=== PATIENT | female | born 2005 | race Caucasian/White ===

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

== ENCOUNTER 2023-01-08 15:35 | Emergency (ER) | payer OTHER, SELFPAY ==
--- NOTE | 2023-01-08 15:44 | EXP.UTC ---
Discharge Plan Disposition Patient Disposition: Home, Self-Care Condition: Good Prescriptions Prescriptions: New phenazopyridine [Pyridium] 200 mg tablet 200 mg PO Q8H 2 Days Qty: 6 0RF sulfamethoxazole-trimethoprim [Bactrim DS] 800-160 mg Tablet 1 tab PO BID Qty: 14 0RF ondansetron 4 mg Tablet,Disintegrating 4 mg PO Q8H PRN (Reason: Nausea) Qty: 12 0RF No Action polyethylene glycol 3350 [Miralax] 17 gram/dose powder 17 g PO DAILY PRN Referrals Follow up/Referrals: Joana Ayoub [Primary Care Provider] - See instructions Activity Restrictions/Add. Instructions Additional Instructions/Restrictions: Drink plenty of fluids. Take tylenol or ibuprofen for pain or fever. Take the medications as directed. Follow up with your regular doctor. GO TO THE ER FOR ANY WORSENING SYMPTOMS The pyridium will make your urine turn orange, this is an expected side effect. It will stain your clothes if it comes into contact with them. We will culture the urine. That will tell what bacteria is causing your infection and which antibiotics will treat it best. Sometimes the first antibiotic we prescribe turns out to not work against different bacteria. So, make sure you follow up within 3 days if you are not getting better. Clinical Impressions Clinical Impression: UTI (urinary tract infection) Stand Alone Forms Stand Alone Forms: Work/School Release Instructions Patient Instructions: Urinary Tract Infection, Urine Culture, DI for Urinary Tract Infection (UTI), Phenazopyridine Discharge ED Provider: Jamaal Flores [facility] General Stated complaint: frequent burning urination Time Seen by Provider: 01/08/23 15:44 History of Present Illness Provider Complaint: She states that for the past 2 days she has had dysuria and urinary frequency. Related Data Home Medications Medication Instructions Recorded Confirmed polyethylene glycol 3350 17 17 g PO DAILY PRN 09/13/22 09/13/22 gram/dose oral powder (Miralax) Previous Rx's Medication Instructions Recorded ondansetron 4 mg disintegrating 4 mg PO Q8H PRN Nausea #12 tabs 01/08/23 tablet phenazopyridine 200 mg tablet 200 mg PO Q8H 2 days #6 tabs 01/08/23 (Pyridium) sulfamethoxazole 800 1 tab PO BID #14 tabs 01/08/23 mg-trimethoprim 160 mg tablet (Bactrim DS) Allergies Allergy/AdvReac Type Severity Reaction Status Date / Time No Known Allergies Allergy Verified 09/13/22 14:08 [facility] Disclaimer: The information contained in this section may have been updated after the patient was seen, as this information can be updated by other users. 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 occupational status: employed and student Travel in the last 8 weeks: None household members: family housing: house ROS Obtained: Yes All systems reviewed & no additional complaints except as documented Constitutional Constitutional: Reports system reviewed and no additional complaints, except as documented, Denies chills and Denies fever(s) Eyes Eyes: Denies eye discharge ENT Ears, Nose, Mouth, and Throat: Denies dysphagia, Denies sore throat and Denies throat swelling Cardiovascular Cardiovascular: Denies chest pain and Denies dyspnea Respiratory Respiratory: Denies chest congestion, Denies cough and Denies dyspnea Gastrointestinal Gastrointestingal: Denies abdominal pain, constipation, diarrhea, dysphagia, nausea or vomiting Genitourinary Female Genitourinary: Reports as per HPI, Reports dysuria, Reports urinary frequency, Denies urinary incontinence, Reports urinary hesitancy and Reports urinary urgency Musculoskeletal Musculoskeletal: Denies arthralgias and Reports back pain Integumentary/B
[2023-01-08 15:45] VITALS: BP 133/89; PULSE 60; RESP 22; TEMP 36.7; O2SAT 96; BMI 27.4
[2023-01-08 15:54] LABS: Apearance,Urine Clear (Clear); Bilirubin,Urine Negative (Negative); Blood, Urine Trace (Negative); Color,Urine Orange (Yellow); Glucose,Urine (UA) 100 (Negative); Ketones,Urine Negative (Negative); Protein,Urine Negative (Negative); Specific Gravity, Urine 1.015 (1.005-1.030); UTC Leukocyte Esterase,Urine Negative (Negative); UTC Nitrate,Urine Positive (Negative); Urobilinogen,Urine 1 EU/dl (0.2)
[2023-01-08 15:55] VITALS: BP 133/89; PULSE 60; RESP 22; TEMP 36.7; O2SAT 96
[2023-01-08 16:49] LABS: Urine Pregnancy, HCG Qual. Negative (Negative)
== END 2023-01-08 16:54 | disposition home or self-care (01) ==
PROVIDERS: Emergency Provider Nurse Practitioner Family; PCP Family Medicine
DX: N39.0 Urinary tract infection, site not specified (principal); B96.29 Other Escherichia coli [E. coli] as the cause of diseases classified elsewhere
CPT/HCPCS: 81003; 81025; 87086; 99212; 99214; G0463

== ENCOUNTER 2023-02-11 13:02 | Emergency (ER) | payer OTHER, SELFPAY ==
[2023-02-11 13:30] VITALS: BP 128/79; PULSE 57; RESP 18; TEMP 36.8; O2SAT 99; BMI 27.7
[2023-02-11 14:11] LABS: UTC Strep Screen (Rapid) Negative (Negative)
--- NOTE | 2023-02-11 14:15 | EXP.UTC ---
Discharge Plan Disposition Patient Disposition: Home, Self-Care Condition: Good Prescriptions Prescriptions: No Action polyethylene glycol 3350 [Miralax] 17 gram/dose powder 17 g PO DAILY PRN Referrals Follow up/Referrals: Joana Ayoub [Primary Care Provider] - See instructions Activity Restrictions/Add. Instructions Additional Instructions/Restrictions: *Monitor Temp, Over the counter Motrin or Tylenol as directed/as needed Tylenol every 4 hours and Motrin every 6 hours (as long as your family doctor has told you that you can take it) for fever or pain. and straight to ER if unable to lower temp less than 101.0 after medication given *Warm salt water gargles may help to soothe the throat *Throat Lozenges? *Warm fluids like tea with honey may help to soothe the throat? *Sleep elevated *Humidifier/Vaporizer *Flonase 2 sprays in each nostril daily but be aware that it may take 2-3 days before you notice improvement *Bromfed may cause drowsiness. Know how it effects you (your child) before driving, caring for small child, or sending your child to school. Not other antihistamines/allergy medications while taking bromfed Your throat swab was sent for culture. Those results are typically sent to your primary care. Be sure to follow up in 2-3 days with your family doctor/primary care physician if no improvement so they can review those result and treat if necessary. If you don?t have a primary care doctor, I recommend you get one but in the mean time, you will have to return to a walk in clinic Follow up IMMEDIATELY for new or worsening symptoms or no Noticeable improvement over the next 48-72 hours. 911 for difficulty breathing or swallowing You were tested for today for with COVID19 your test result should be back in the next 24 hours You may check for your results on the [facility] My Health Portal if your COVID test is positive you must Quarantine for 5 days Clinical Impressions Clinical Impression: Viral syndrome Stand Alone Forms Stand Alone Forms: Work/School Release Instructions Patient Instructions: Sore Throat, DI for COVID-19 (Suspected or Confirmed ) [place] ED [place] De [place] [facility] [place] Stated complaint: sore throat, headache, cough Mode of Arrival: Ambulatory Source of Information: Patient Limitations: No Limitations Time Seen by Provider: 02/11/23 14:15 Description of Symptoms (Recalled from Triage Doc. by RN): RUIZ, and sore throat started today. She was exposed to covid last week at work. HEENT Symptoms (Recalled from RN notes): Yes Resp Symptoms (Recalled from RN notes): No Skin Symptoms (Recalled from RN notes): No MS Symptoms (Recalled from RN notes): No Functional Status (Recalled from RN notes): n/a History of Present Illness Provider Complaint: Patient states that she woke up this morning feeling achy all over with sore throat and headache States that she was around coworkers last week that tested positive for COVID so she came in to get checked Related Data Home Medications Medication Instructions Recorded Confirmed polyethylene glycol 3350 17 17 g PO DAILY PRN 09/13/22 09/13/22 gram/dose oral powder (Miralax) Allergies Allergy/AdvReac Type Severity Reaction Status Date / Time No Known Allergies Allergy Verified 02/11/23 13:55 Worker's Comp Is this a Worker's Comp case?: No [facility]SH [facility] Disclaimer: The information contained in this section may have been updated after the patient was seen, as this information can be updated by other users. 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 occupational status: employed and student Travel in the last 8 weeks: None household members: family loriin
[2023-02-11 14:29] VITALS: BP 128/79; PULSE 57; RESP 18; TEMP 36.8; O2SAT 99
== END 2023-02-11 14:29 | disposition home or self-care (01) ==
PROVIDERS: Emergency Provider Nurse Practitioner; PCP Family Medicine
DX: R51.9 Headache, unspecified (principal); R05.9 Cough, unspecified; R07.0 Pain in throat; Z20.822 Contact with and (suspected) exposure to COVID-19
CPT/HCPCS: 87635; 87880; 99212; 99213; G0463

== ENCOUNTER 2023-02-15 09:16 | Emergency (ER) | payer OTHER, SELFPAY ==
[2023-02-15 09:25] VITALS: BP 127/79; PULSE 58; RESP 22; TEMP 36.7; O2SAT 100; BMI 27.7
[2023-02-15 09:43] LABS: UTC Strep Screen (Rapid) Negative (Negative)
--- NOTE | 2023-02-15 09:45 | EXP.UTC ---
Discharge Plan Disposition Patient Disposition: Home, Self-Care Condition: Good Prescriptions Prescriptions: New polymyxin B sulf-trimethoprim 10,000 unit- 1 mg/mL drops 2 drp ophthalmic (eye) Q3H 7 Days Qty: 10 0RF Rx Instructions: both while awake; do not exceed 6 doses in 24 hours azithromycin [Zithromax Z-Fazal] 250 mg tablet See Rx Instructions .ROUTE .COMPLEX 5 Days Qty: 6 0RF Rx Instructions: For 250 mg dose pack: take 500 mg today (day 1), then 250 mg for 4 days (days 2-5) methylprednisolone [Medrol (Fazal)] 4 mg tablets,dose pack See Rx Instructions .Route .COMPLEX 6 Days Qty: 21 0RF Rx Instructions: taper pack; No Action polyethylene glycol 3350 [Miralax] 17 gram/dose powder 17 g PO DAILY PRN Referrals Follow up/Referrals: Joana Ayoub [Primary Care Provider] - See instructions Activity Restrictions/Add. Instructions Additional Instructions/Restrictions: *Monitor Temp, Over the counter Motrin or Tylenol as directed/as needed Tylenol every 4 hours and Motrin every 6 hours (as long as your family doctor has told you that you can take it) for fever or pain. and straight to ER if unable to lower temp less than 101.0 after medication given *Warm salt water gargles may help to soothe the throat *Throat Lozenges? *Warm fluids like tea with honey may help to soothe the throat? *Sleep elevated *Humidifier/Vaporizer *Take medication as prescribed Use eye drops as prescribed Wash hands before and after applying eye drops Your throat swab was sent for culture. Those results are typically sent to your primary care. Be sure to follow up in 2-3 days with your family doctor/primary care physician if no improvement so they can review those result and treat if necessary. If you don?t have a primary care doctor, I recommend you get one but in the mean time, you will have to return to a walk in clinic Follow up IMMEDIATELY for new or worsening symptoms or no Noticeable improvement over the next 48-72 hours. 911 for difficulty breathing or swallowing Clinical Impressions Clinical Impression: Conjunctivitis Qualifiers: Conjunctivitis type: unspecified Laterality: bilateral Qualified Code(s): H10.9 - Unspecified conjunctivitis Sinusitis Qualifiers: Sinusitis location: unspecified location Chronicity: unspecified Qualified Code(s): J32.9 - Chronic sinusitis, unspecified Instructions Patient Instructions: DI for Sinusitis, Sinusitis, DI for Conjunctivitis Discharge ED Provider: Cinthia De Leon [facility] [place] General Stated complaint: redness in right eye, sore throat Mode of Arrival: Ambulatory Source of Information: Patient Limitations: No Limitations Time Seen by Provider: 02/15/23 09:46 Description of Symptoms (Recalled from Triage Doc. by RN): PATIENT C/O SORE THROAT AND BODY ACHES SINCE SATURDAY AND BILATERAL EYE DRAINAGE THIS MORNING HEENT Symptoms (Recalled from RN notes): Yes Resp Symptoms (Recalled from RN notes): No Skin Symptoms (Recalled from RN notes): No MS Symptoms (Recalled from RN notes): No Functional Status (Recalled from RN notes): WNL History of Present Illness Provider Complaint: Patient states that she has been sick since Saturday States that she has been having sore throat, redness and drainage from both eyes and her right eye was matted this am States that also she has been having yellowish green drainage from her nose and occasionally coughing up some mucous so today [facility] came back in to get checked Related Data Home Medications Medication Instructions Recorded Confirmed polyethylene glycol 3350 17 17 g PO DAILY PRN 09/13/22 09/13/22 gram/dose oral powder (Miralax) Previous Rx's Medication Instructions Recorded azithromycin 250 mg tablet See Rx Instructions PO .COMPLEX 5 02/15/23 (Zithromax Z-Fazal) days #6 tabs methylprednisolone 4 mg tablets in See Rx Instructions .Route 02/15/23 a dose pack (Medrol (Fazal)) .CO
[2023-02-15 09:50] VITALS: BP 127/79; PULSE 58; RESP 22; TEMP 36.7; O2SAT 100
== END 2023-02-15 09:57 | disposition home or self-care (01) ==
PROVIDERS: Emergency Provider Nurse Practitioner; PCP Family Medicine
DX: J01.90 Acute sinusitis, unspecified (principal); H10.33 Unspecified acute conjunctivitis, bilateral; R51.9 Headache, unspecified; R07.0 Pain in throat; R09.81 Nasal congestion
CPT/HCPCS: 87880; 99212; 99214; G0463

== ENCOUNTER 2023-03-16 03:42 | Emergency (ER) | payer BC, SELFPAY ==
[2023-03-16 03:43] VITALS: BP 126/90; PULSE 62; RESP 16; TEMP 36.7; O2SAT 98; BMI 25.7
[2023-03-16 03:59] LABS: Microscopic, Urine URINE MICROSCOPIC (MICROSCOPIC)
[2023-03-16] MEDS: LACTATED RINGERS 1000ML 1,000 ML 999 ML IV (04:01)
[2023-03-16 04:02] LABS: Urine Pregnancy, HCG Qual. Negative (Negative)
[2023-03-16 04:04] LABS: Appearance,Urine SL CLOUDY (Clear); Blood, Urine Negative (Negative); Color,Urine YELLOW (Yellow); Glucose,Urine (UA) Negative (Negative); Ketones,Urine Negative (Negative); Leukocyte Esterase,Urine TRACE (Negative); Nitrate,Urine Negative (Negative); PH,Urine 6.5 (5.0-8.5); Protein,Urine 1+ (Negative); Specific Gravity, Urine >= 1.030 (1.005-1.030)
[2023-03-16 04:08] LABS: Chloride 107 mmol/L (98-107); Potassium 4.8 mmoL/L (3.5-5.1); Sodium 139 mmol/L (136-145)
[2023-03-16 04:10] LABS: Alanine Aminotransferase 68 U/L (12-78); Aspartate Amino Transferase 125 U/L (14-36); Blood Urea Nitrogen 17 mg/dl (7-17); Creatinine Clearance Estimated 155 mL/min (50-200); Estimated Glomerular Filt Rate 127 ml/min (>60); GFR (African American) 154 ML/MIN (>60)
[2023-03-16 04:11] LABS: Albumin Level 4.7 g/dl (3.5-5.0); Albumin/Globulin Ratio 1.4 (1.1-1.8); Alkaline Phosphatase 44 U/L (38-126); Anion Gap 16.8 mEq/L (5-15); Bilirubin,Total 1.2 mg/dl (0.2-1.3); Calcium 8.8 mg/dl (8.4-10.2); Carbon Dioxide 20 mmol/L (22.0-30.0); Globulin 3.4 g/dL (1.3-3.2); Glucose 131 mg/dl (74-100); Total Protein,Serum 8.1 g/dl (6.3-8.2)
[2023-03-16 04:12] LABS: Bilirubin,Urine 1+ (Negative); RBC,Urine Occasional #/hpf (0-3)
[2023-03-16 04:13] LABS: Bacteria,Urine 2+ /lpf; Mucus,Urine Trace /lpf
[2023-03-16 04:29] LABS: D-Dimer 0.53 ug/mL (0.0-0.5)
--- NOTE | 2023-03-16 04:30 | ECG_ITS ---
APPROVED REPORT Exam: Resting ECG HR:63 bpm ECG Measurements Heart Rate 63 AXES [place] 150 P 64 QRSd 94 QRS 89 QT 417 T 59 QTc 424 Conclusion SINUS RHYTHM WITH MARKED SINUS ARRHYTHMIA BORDERLINE ECG UNCONFIRMED REPORT Electronically signed by : Luis Ledesma MD 03/17/2023 09:04:07
[2023-03-16] MEDS: ACETAMINOPHEN 1,000MG/100ML VIAL 1000 MG IV (04:33)
[2023-03-16] MEDS: KETOROLAC 30MG/ML VIAL 15 MG IV (04:34)
--- NOTE | 2023-03-16 04:34 | ED_ITS ---
Discharge Plan Disposition Patient Disposition: Home, Self-Care Condition: Good Prescriptions Prescriptions: New fluconazole 150 mg tablet 150 mg PO Q3D Qty: 2 0RF Rx Instructions: Start after 03/19/23 cefdinir 300 mg capsule 300 mg PO BID 10 Days Qty: 20 0RF No Action polyethylene glycol 3350 [Miralax] 17 gram/dose powder 17 g PO DAILY PRN polymyxin B sulf-trimethoprim 10,000 unit- 1 mg/mL drops 2 drp ophthalmic (eye) Q3H 7 Days Qty: 10 0RF Rx Instructions: both while awake; do not exceed 6 doses in 24 hours azithromycin [Zithromax Z-Fazal] 250 mg tablet See Rx Instructions .ROUTE .COMPLEX 5 Days Qty: 6 0RF Rx Instructions: For 250 mg dose pack: take 500 mg today (day 1), then 250 mg for 4 days (days 2-5) methylprednisolone [Medrol (Fazal)] 4 mg tablets,dose pack See Rx Instructions .Route .COMPLEX 6 Days Qty: 21 0RF Rx Instructions: taper pack; Referrals Follow up/Referrals: Joana Ayoub [Primary Care Provider] - See instructions Activity Restrictions/Add. Instructions Additional Instructions/Restrictions: You were evaluated in the Emergency Department today for vaginal pain and dysuria. You were diagnosed with a yeast infection and kidney infection. Start your fluconazole 03/19/22 and take the second dose after another 3 days. 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 Make sure that you drink plenty of fluids and stay very hydrated. Follow-up with a primary care provider over the next 3 days. Return to the emergency department for new or worsening symptoms. Clinical Impressions Clinical Impression: Candidiasis of vagina, Pyelonephritis, Syncope Instructions Patient Instructions: DI for Syncope in Adults (Fainting), DI for Kidney Infection, DI for Vaginal Yeast Infection, DI for Acute Abdominal Pain Discharge ED Provider: Ashley Dominguez General Adult HPI General Chief complaint: Abdominal Pain Stated complaint: Stomach pain,middle back pain,passed out at home Time Seen by Provider: 03/16/23 03:48 Mode of Arrival: Ambulatory Source of Information: Patient Limitations: No Limitations Description of Symptoms (Recalled from ER Triage Doc. by RN): pt states just finish antibodics for strep. pt c/o burning and itching vaginal that started earlier yesterday. last night pt began having abd and lower back pain, fever, body aches History of Present Illness HPI narrative: This patient is a 18-year-old female presenting to the emergency department for evaluation with concern for abdominal pain, back pain, vaginal burning and itching, and a syncopal episode that happened earlier today. Patient reports that she just finished an antibiotic course for strep pharyngitis, and started having burning and white discharge in her vagina that started yesterday. Symptoms got worse after starting OTC monistat. She denies any concerns for sexually transmitted infection. She is concerned she may have a yeast infection. Last night, she started having generalized abdominal pain and cramping as well as pain in her lower back. She states that it is severe. She tried to take a hot bath, and when she got out of the bathtub she ended up passing out. She also notes that she is having dysuria. She also notes nausea. She denies any other concerns at this time. She has a history of chronic constipation, but denies any issues with bowel movements lately. Related Data Home Medications Medication Instructions Recorded Confirmed polyethylene glycol 3350 17 17 g PO DAILY PRN 09/13/22 09/13/22 gram/dose oral powder (Miralax) Previous Rx's Medication Instructions Recorded azithromycin 250 mg tablet See Rx Instructions PO .COMPLEX 5 02/15/23 (Zithromax Z-Fazal) days #6 tabs methylprednisolone 4 mg tablets in See Rx Instructions .Route 02/15/23 a dose pack (Medrol (Fazal)) .COMPLEX 6 days #21 tabs polymyxin B sulfate 10,000 2 drp ophthalmic (eye) Q3H 7 days 02/15/23 unit-trimethoprim 1 mg/mL eye drops #10 mL cefdinir 300 mg capsule 300 mg PO BID 10 days #20 caps 03/16/23 fluconazole 150 mg tablet 150 mg PO Q3D 2 doses #2 tabs 03/16/23 Allergies Allergy/AdvReac Type Severity Reaction Status Date / Time No Known Allergies Allergy Verified 02/11/23 13:55 [facility] Disclaimer: The information contained in this section may have been updated after the patient was seen, as this information can be updated by other users. 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 occupational status: employed and student Travel in the last 8 weeks: None household members: family housing: house ROS Obtained: Yes All systems reviewed & no additional complaints except as documented Physical Exam General General appearance: alert and in no apparent distress Head Head exam: atraumatic and normocephalic Eye Eye exam: Present normal appearance, PERRL and EOMI ENT ENT exam: Present normal exam, normal oropharynx, mucous membranes moist and normal external ear exam Neck Neck exam: Present normal inspection, full ROM and trachea midline; Absent tenderness Chest Chest inspection: Present normal inspection and symmetric chest wall rise; Absent tenderness Respiratory Respiratory exam: Present normal lung sounds bilaterally; Absent respiratory distress, wheezes, stridor or accessory muscle use Cardiovascular Cardiovascular exam: Present regular rate and normal rhythm Abdominal Exam Abdominal exam: Present soft; Absent distention, tenderness or guarding External exam: Present erythema, tenderness and other (redness and warmth with white discharge, satellite lesions, concern for yeast infection) Speculum exam: Present vaginal discharge Extremities Exam Extremities exam: Present normal inspection, full ROM and normal capillary refill; Absent tenderness or edema Back Exam Back exam: Present normal inspection and full ROM; Absent tenderness Neurological Exam Neurological exam: Present alert, oriented X3, CN II-XII intact and normal gait; Absent motor sensory deficit Psychiatric Psychiatric exam: Present normal affect and normal mood Skin Skin exam: Present warm and dry Medical Decision Making Medical Records Medical records reviewed: Yes I reviewed the patient's medical records. Gamaliel Inquiry Pt receiving controlled substance: No Vital Signs: 03/16/23 03:43 Temperature 98.1 F Temperature Source Oral Pulse Rate [Right] 62 Respiratory Rate 16 Blood Pressure [Right Arm] 126/90 Blood Pressure Mean [Right Arm] 102 02 Sat by Pulse Oximetry 98 Lab Data Lab results reviewed: Yes I reviewed the patient's lab results. Lab Results 03/16/23 03:48: Urine Color Yellow, Urine Appearance Sl cloudy, Urine pH 6.5, Ur Specific [place] >= 1.030, Urine Protein 1+, Urine Glucose (UA) Negative, Urine Ketones Negative, Urine Blood Negative, Urine Nitrate Negative, Urine Bilirubin 1+ A, Urine Urobilinogen 1.0, Ur Leukocyte Esterase Trace, Urine RBC Occasional, Urine WBC 5-10, Ur Squamous Epith Cells 3-5, Urine Bacteria 2+, Urine Mucus Trace, Urine HCG, Qual Negative 03/16/23 03:57: WBC 12.9, RBC 4.55, Hgb 13.3, Hct 38.3, MCV 84.1, MCH 29.3, MCHC 34.9, RDW 13.9, Plt Count 265, MPV 8.0, Neut % (Auto) 88.0 H, Lymph % (Auto) 5.9 L, Johnson % (Auto) 4.8, Eos % (Auto) 1.3, Baso % (Auto) 0.1, Neut # (Auto) 11.4 H, Lymph # (Auto) 0.8, Johnson # (Auto) 0.6, Eos # (Auto) 0.2, Baso # (Auto) 0.0, Total Counted 100, Neutrophils % (Manual) 87 H, Lymphocytes % (Manual) 8 L, Monocytes % (Manual) 4, Eosinophils % (Manual) 1, Platelet Estimate Normal, RBC Morphology Normal, D-Dimer 0.53 H, Sodium 139, Potassium 4.8, Chloride 107, Carbon Dioxide 20 L, Anion Gap 16.8 H, BUN 17, Creatinine 0.60, Estimated Creat Clear 155, Estimated GFR 127, Est GFR ( Amer) 154, Glucose 131 H, Calcium 8.8, Total Bilirubin 1.2, AST 125 H, ALT 68, Alkaline Phosphatase 44, Total Protein 8.1, Albumin 4.7, Globulin 3.4 H, Albumin/Globulin Ratio 1.4, Lipase 101 03/16/23 03:57 03/16/23 03:57 Orders (Tests/Meds): ED MEDICATIONS Discontinued Medications Generic Name Dose Route Start Last Admin Trade Name Freq PRN Reason Stop Dose Admin Acetaminophen 1,000 mg 03/16/23 04:20 03/16/23 04:33 Acetaminophen 1,000mg/100ml Vial IV 03/16/23 04:21 1,000 mg ONCE ONE Administration Fluconazole 200 mg 03/16/23 04:38 03/16/23 04:51 Fluconazole 200mg Tablet PO 03/16/23 04:39 Not Given ONCE ONE Fluconazole 200 mg 03/16/23 04:44 03/16/23 04:45 Fluconazole 100mg Tablet PO 03/16/23 04:45 200 mg ONCE ONE Administration Lactated Ringer's 1,000 mls @ 999 mls/hr 03/16/23 03:54 03/16/23 04:01 Lactated Ringer's 1000 Ml Bag IV 03/16/23 04:54 999 mls/hr .Q1H1M ONE Administration Ceftriaxone Sodium 2 gm/ 100 mls @ 200 mls/hr 03/16/23 05:08 03/16/23 05:20 Sodium Chloride IV 03/16/23 05:37 200 mls/hr ONCE ONE Administration Ketorolac Tromethamine 15 mg 03/16/23 04:20 03/16/23 04:34 Ketorolac 30mg/Ml Vial IV 03/16/23 04:21 15 mg ONCE ONE Administration Ondansetron HCl 4 mg 03/16/23 04:37 03/16/23 04:43 Ondansetron 4mg/2ml Vial IV 03/16/23 04:38 4 mg ONCE ONE Administration ORDERS Category Date Time Status CBC w/Auto Diff [Complete Blood Count Auto Diff] Stat Lab 03/16/23 03:57 Completed Comprehensive Metabolic Panel Stat Lab 03/16/23 03:57 Completed D-Dimer Stat Lab 03/16/23 03:57 Completed Lipase Stat Lab 03/16/23 03:57 Completed Urinalysis and Microscopic Stat Lab 03/16/23 03:48 Completed Urine , HCG Qual. Stat Lab 03/16/23 03:48 Completed Urine Culture Stat Micro 03/16/23 03:48 Received ECG Data Tracing #1: I reviewed this ECG and interpreted as documented below: Normal sinus rhythm with sinus arrhythmia with a ventricular rate of [address] changes concerning for ischemia. Normal axis and intervals ECG initial impression date: 03/16/23 ECG initial impression time: 04:32 Medical Decision Narrative: In summary, this patient is a 18-year-old female presenting to the Emergency Department for evaluation of abdominal pain, low back pain, vaginal burning and itching, and an episode of syncope. Differential diagnoses considered include but are not limited to pyelonephritis, cystitis, , ectopic , vasovagal syncope, dysrhythmia, contact dermatitis from monistat, PE, vaginal candidiasis, gastroenteritis, colitis, constipation. Ruling out the most morbid conditions drove assessment. On exam, the patient is well-appearing. She has reassuring vital signs on cardiac telemetry. Abdominal exam is benign with no significant tenderness or guarding. Workup included CBC, CMP, lipase, D-dimer, test, urinalysis, and EKG. Patient was given a bolus of IV fluids as well as IV acetaminophen and IV Zofran. Once test came back negative, patient was given IV Toradol. For her yeast infection with her vaginal burning and white discharge after recent antibiotic treatment, patient was given oral fluconazole. EKG was obtained that was reassuring. D-dimer is negative based on years criteria. Urine is concerning for possible infection with bacteria, leukocyte esterase, and protein. test is negative. On reassessment, the patient is resting comfortably with again benign abdominal exam. No tenderness to be elicited. Vitals are normal on cardiac telemetry. Given that the patient has had back pain and chills in addition to her leukocytosis and abnormal urinalysis, it is possible she could have pyelonephritis. Given this, she was given IV Rocephin. Given concern for vaginal candidiasis on exam, she was given oral fluconazole. Also provided with prescription for 150 mg oral fluconazole every 3 days as well as prescription for cefdinir. Based on reassuring workup and exam, I feel she is appropriate for discharge with prescriptions as above and instructions for supportive management. She was given strict return precautions and she was discharged in stable condition. Critical Care Critical Care Time Critical Care Time: No
[2023-03-16] MEDS: ONDANSETRON 4MG/2ML VIAL 4 MG IV (04:43)
[2023-03-16] MEDS: FLUCONAZOLE 100MG TABLET 200 MG PO (04:45)
[2023-03-16 04:53] LABS: Basophils % 0.1 % (0.1-2.0); Eosinophils # 0.2 K/mm3 (0.0-0.4); Eosinophils % 1.3 % (0.1-12.0); Hematocrit 38.3 % (37.0-47.0); Hemoglobin 13.3 g/dL (12.2-16.2); Lymphocytes # 0.8 K/mm3 (0.7-4.5); Lymphocytes % 5.9 % (10-50); Mean Corpuscular HGB Conc 34.9 g/dL (31.8-35.4); Mean Corpuscular Hemoglobin 29.3 pg (27.0-31.2); Mean Corpuscular Volume 84.1 fl (81-99); Monocytes # 0.6 K/mm3 (0.1-1.0); Monocytes % 4.8 % (1.7-9.3); Neutrophils # 11.4 K/mm3 (1.8-7.8); Platelet Count 265 K/mm3 (142-424); Red Blood Count 4.55 M/mm3 (4.20-5.40); Red Cell Distribution Width 13.9 % (11.5-17.5); White Blood Count 12.9 K/mm3 (4.5-13.0)
[2023-03-16 04:55] LABS: MANUAL DIFFERENTIAL MANUAL DIFFERENTIAL (MANUAL DIFF)
[2023-03-16 04:56] LABS: Lipase 101 U/L (23-300)
[2023-03-16 05:06] LABS: Eosinophils % 1 % (0-3); Lymphocytes % 8 % (10-50); Monocytes % 4 % (2-9); Neutrophils % 87 % (42-76); Platelet Estimate Normal; RBC Morphology Normal; Total Cells Counted 100
[2023-03-16] MEDS: CEFTRIAXONE SODIUM 2 GM in 0.9 % SODIUM CHLORIDE 100 ML IV (05:20)
[2023-03-16 06:27] VITALS: BP 119/83; PULSE 63; RESP 16; TEMP 36.7
== END 2023-03-16 06:24 | disposition home or self-care (01) ==
PROVIDERS: Emergency Provider Emergency Medicine; PCP Family Medicine
DX: N12 Tubulo-interstitial nephritis, not specified as acute or chronic (principal); B37.31 Acute candidiasis of vulva and vagina; R55 Syncope and collapse; R10.9 Unspecified abdominal pain; M54.50 Low back pain, unspecified; I49.9 Cardiac arrhythmia, unspecified
CPT/HCPCS: 80053; 81001; 81025; 83690; 85007; 85025; 85378; 87086; 93005; 96361; 96365; 96375; 99285; J0131; J0696; J2405

== ENCOUNTER 2023-06-06 18:12 | Emergency (ER) | payer BC, SELFPAY ==
[2023-06-06 18:20] VITALS: BP 113/71; PULSE 60; RESP 20; TEMP 36.8; O2SAT 100; BMI 27.9
[2023-06-06 18:35] LABS: Apearance,Urine Clear (Clear); Color,Urine Yellow (Yellow)
[2023-06-06 18:36] LABS: Bilirubin,Urine Negative (Negative); Blood, Urine 3+ (Negative); Glucose,Urine (UA) Negative (Negative); Ketones,Urine Negative (Negative); Protein,Urine Negative (Negative); Specific Gravity, Urine 1.015 (1.005-1.030); UTC Leukocyte Esterase,Urine Negative (Negative); UTC Nitrate,Urine Negative (Negative); UTC Pregnancy Test, Urine Negative (Negative); Urobilinogen,Urine 0.2 EU/dl (0.2)
--- NOTE | 2023-06-06 18:40 | EXP.UTC ---
Discharge Plan Disposition Patient Disposition: Still a Patient Condition: Good Prescriptions Prescriptions: New Monistat 3 200 mg/5 gram (4 %) cream 1 appful vaginal HS 3 Days Qty: 15 0RF Referrals Follow up/Referrals: Provider,Referral, [Primary Care Provider] - See instructions Activity Restrictions/Add. Instructions Additional Instructions/Restrictions: Drink plenty of fluids. Take tylenol for pain or fever. Take the medications as directed. Follow up with your regular doctor. GO TO THE ER FOR ANY WORSENING SYMPTOMS We will call you with the results of your serum test. Clinical Impressions Clinical Impression: Vaginal yeast infection, Amenorrhea Instructions Patient Instructions: DI for Vaginal Yeast Infection, Miconazole Vaginal Discharge ED Provider: Jamaal Flores [facility] General Stated complaint: burning during urination Mode of Arrival: Ambulatory Source of Information: Patient Limitations: No Limitations Time Seen by Provider: 06/06/23 18:31 Description of Symptoms (Recalled from Triage Doc. by RN): PATIENT C/O BURNING TO GENITAL AREA X 2 DAYS. SHE ALSO REPORTS A POSITIVE AT HOME TEST, HOWEVER SHE DID START HER PERIOD THIS MORNING HEENT Symptoms (Recalled from RN notes): No Resp Symptoms (Recalled from RN notes): No Skin Symptoms (Recalled from RN notes): No MS Symptoms (Recalled from RN notes): No Functional Status (Recalled from RN notes): WNL History of Present Illness Provider Complaint: She states that she has had burning and irritation of her vaginal area for the past 3 days. She believes she has a yeast infection. Also, she took a test yesterday at home because her period was a few days late . The test result was positive. She states that today she seems to have started her period today. Related Data Previous Rx's Medication Instructions Recorded miconazole nitrate 200 mg/5 gram 1 appful vaginal HS 3 days #15 06/06/23 (4 %) vaginal cream (Monistat 3) grams Allergies Allergy/AdvReac Type Severity Reaction Status Date / Time No Known Allergies Allergy Verified 02/11/23 13:55 Worker's Comp Is this a Worker's Comp case?: No [facility] Disclaimer: The information contained in this section may have been updated after the patient was seen, as this information can be updated by other users. 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 occupational status: employed and student Travel in the last 8 weeks: None household members: family housing: house ROS Obtained: Yes All systems reviewed & no additional complaints except as documented Constitutional Constitutional: Denies chills and Denies fever(s) Eyes Eyes: Denies eye discharge ENT Ears, Nose, Mouth, and Throat: Denies dizziness, Denies otalgia and Denies sore throat Cardiovascular Cardiovascular: Denies chest pain Respiratory Respiratory: Denies shortness of breath, Denies chest congestion, Denies cough, Denies stridor and Denies wheezing Gastrointestinal Gastrointestingal: Denies abdominal pain, constipation, cramping, diarrhea, nausea or vomiting Genitourinary Female Genitourinary: Reports as per HPI, Denies dysuria, Denies urinary frequency, Denies urinary incontinence, Denies urinary hesitancy and Denies urinary urgency Musculoskeletal Musculoskeletal: Reports system reviewed and no additional complaints, except as documented and Denies arthralgias Integumentary/Breasts Skin/Breast: Denies rash Neurologic Neurologic: Denies dizziness and Denies paresthesias Allergic/Immunologic Allergic/Immunologic: Denies wheezing Physical Exam General General appearance: alert and in no apparent distress Head Head exam: atraumatic, normocephalic and normal inspection Eye Eye exam: Present normal appearance, PERRL and EOMI ENT ENT exam: Present normal exam, normal oropharynx, mucous membranes moist, TM's normal bilaterally and normal external ear exam Neck Neck exam: Present normal inspection, full ROM and trachea midline; Absent meningismus or lymphadenopathy Chest Chest inspection: Present normal inspection and symmetric chest wall rise; Absent tenderness Respiratory Respiratory exam: Present normal lung sounds bilaterally; Absent respiratory distress Cardiovascular Cardiovascular exam: Present regular rate and normal rhythm; Absent JVD Abdominal Exam Abdominal exam: Present soft and normal bowel sounds; Absent distention, tenderness or guarding Extremities Exam Extremities exam: Present normal inspection, full ROM and normal capillary refill; Absent calf tenderness Back Exam Back exam: Present normal inspection; Absent tenderness Neurological Exam Neurological exam: Present alert and oriented X3 Psychiatric Psychiatric exam: Present normal affect and normal mood Skin Skin exam: Present warm, dry, intact and normal color Lymphatic Lymphatic Findings: no adenopathy Medical Decision Making Medical Records Medical records reviewed: No I reviewed the patient's medical records. Gamaliel Inquiry Pt receiving controlled substance: No Vital Signs: 06/06/23 18:20 Temperature 98.2 F Temperature Source Oral Pulse Rate [Left Brachial] 60 Respiratory Rate 20 Blood Pressure [Left Arm] 113/71 Blood Pressure Mean [Left Arm] 85 Blood Pressure Source [Left Arm] Automatic Cuff Blood Pressure Position [Left Arm] Sitting 02 Sat by Pulse Oximetry 100 Oxygen Delivery Method Room Air Lab Data Lab results reviewed: Yes I reviewed the patient's lab results. Lab Results 06/06/23 18:33: Urine Color Yellow, Urine Appearance Clear, Urine pH 7.0, Ur Specific [place] 1.015, Urine Protein Negative, Urine Glucose (UA) Negative, Urine Ketones Negative, Urine Blood 3+, Urine Nitrate Negative, Urine Bilirubin Negative, Urine Urobilinogen 0.2, Ur Leukocyte Esterase Negative, Tst Clinic Negative Orders (Tests/Meds): ORDERS Category Date Time Status Urine Culture Stat Micro 06/06/23 18:33 Ordered
[2023-06-06 18:56] VITALS: BP 113/71; PULSE 60; RESP 20; TEMP 36.8; O2SAT 100
[2023-06-06 19:17] LABS: HCG Qualitative, Serum Negative (Negative)
== END 2023-06-06 18:58 | disposition still patient (30) ==
PROVIDERS: Emergency Provider Nurse Practitioner Family
DX: B37.31 Acute candidiasis of vulva and vagina (principal); B96.89 Other specified bacterial agents as the cause of diseases classified elsewhere; N91.2 Amenorrhea, unspecified
CPT/HCPCS: 81003; 81025; 84703; 87086; 99212; 99214; G0463

== ENCOUNTER 2023-11-27 15:10 | Outpatient (CLI) | payer BC, SELFPAY ==
[2023-11-27 16:52] LABS: HCG,Quantitative 10054 mIU/ml (0-5.42)
[2023-11-29 08:26] LABS: Progesterone 25.5 ng/mL (.)
== END 2023-11-27 23:59 | disposition home or self-care (01) ==
LOC: LAB 15:13
PROVIDERS: PCP Family Medicine; Visit Provider Obstetrics & Gynecology
DX: K08.129 Complete loss of teeth due to periodontal diseases, unspecified class (principal)
CPT/HCPCS: 36415; 84144; 84702

== ENCOUNTER 2024-01-02 18:46 | Emergency (ER) | payer BC, SELFPAY ==
--- NOTE | 2024-01-02 19:22 | EXP.UTC ---
Discharge Plan Disposition Patient Disposition: Home, Self-Care Condition: Good Prescriptions Prescriptions: New promethazine 25 mg tablet 25 mg PO TID PRN (Reason: nausea and vomiting) Qty: 20 0RF No Action Classic 28 mg iron- 800 mcg tablet 1 tab PO DAILY Referrals Follow up/Referrals: Joana Ayoub [Primary Care Provider] - See instructions Activity Restrictions/Add. Instructions Additional Instructions/Restrictions: Drink plenty of fluids. Take tylenol for pain or fever. Follow up with your regular doctor. GO TO THE ER FOR ANY WORSENING SYMPTOMS Clinical Impressions Clinical Impression: Acute viral pharyngitis Stand Alone Forms Stand Alone Forms: Work/School Release Instructions Patient Instructions: Viral Pharyngitis, DI for Viral Pharyngitis Print Language Print Language: Turkmen Discharge ED Provider: Jamaal Flores [facility] [place] General Stated complaint: sore throat,, RUIZ Time Seen by Provider: 01/02/24 19:22 History of Present Illness Provider Complaint: She states that for the past 1 day she has had sore throat and malaise. She is 10 weeks . Related Data Home Medications ?Medication ?Instructions ?Recorded ?Confirmed vits no.126-ferrous fum 1 tab PO DAILY 12/13/23 12/20/23 28 mg iron-folic acid 800 mcg tablet (Classic ) Previous Rx's ?Medication ?Instructions ?Recorded promethazine 25 mg tablet 25 mg PO TID PRN nausea and 01/02/24 vomiting #20 tabs Allergies Allergy/AdvReac Type Severity Reaction Status Date / Time No Known Allergies Allergy Verified 12/20/23 10:01 [facility] Disclaimer: The information contained in this section may have been updated after the patient was seen, as this information can be updated by other users. 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 occupational status: employed and student Travel in the last 8 weeks: None household members: family housing: house ROS Obtained: Yes All systems reviewed & no additional complaints except as documented Constitutional Constitutional: Reports chills and Reports fever(s) Eyes Eyes: Denies eye discharge ENT Ears, Nose, Mouth, and Throat: Reports as per HPI Cardiovascular Cardiovascular: Denies chest pain Respiratory Respiratory: Denies chest congestion and Reports cough Gastrointestinal Gastrointestingal: Reports nausea; Denies abdominal pain, constipation, cramping, diarrhea or vomiting Musculoskeletal Musculoskeletal: Denies arthralgias Integumentary/Breasts Skin/Breast: Denies rash Neurologic Neurologic: Denies paresthesias Physical Exam General General appearance: alert and in no apparent distress Head Head exam: atraumatic, normocephalic and normal inspection Eye Eye exam: Present normal appearance, PERRL and EOMI ENT ENT exam: Present mucous membranes moist and normal external ear exam Expanded ENT Exam TM/Canal exam: Bilateral TM: erythema and bulging Nose exam: Absent sinus tenderness Mouth exam: Present normal external inspection; Absent drooling Teeth exam: Present normal inspection Throat exam: Present tonsillar erythema, tonsillomegaly and tonsillar exudate Neck Neck exam: Present normal inspection, full ROM and trachea midline; Absent tenderness, meningismus or lymphadenopathy Chest Chest inspection: Present normal inspection and symmetric chest wall rise; Absent tenderness Respiratory Respiratory exam: Present normal lung sounds bilaterally; Absent respiratory distress, wheezes, stridor or accessory muscle use Cardiovascular Cardiovascular exam: Present regular rate and normal rhythm; Absent systolic murmur or diastolic murmur Abdominal Exam Abdominal exam: Present soft and normal bowel sounds; Absent distention, tenderness, guarding, rebound or rigidity Extremities Exam Extremities exam: Present normal inspection and normal capillary refill; Absent calf tenderness Back Exam Back exam: Present normal inspection and full ROM; Absent tenderness, CVA tenderness (R) or CVA tenderness (L) Neurological Exam Neurological exam: Present alert, oriented X3 and CN II-XII intact Psychiatric Psychiatric exam: Present normal affect and normal mood Skin Skin exam: Present warm, dry, intact and normal color Medical Decision Making Medical Records Medical records reviewed: No I reviewed the patient's medical records. Screening: Per USPSTF and CDC recommendations, given the prevalence of disease in our region, it is our hospital?s policy to screen for HIV and viral Hepatitis for all patients aged 18 and over and those with ongoing risk factors. Gamaliel Inquiry Pt receiving controlled substance: No Lab Data Lab results reviewed: Yes I reviewed the patient's lab results.
[2024-01-02 19:25] VITALS: BP 117/88; PULSE 73; RESP 17; TEMP 36.8; O2SAT 73; BMI 28.8
[2024-01-02 19:28] LABS: UTC Strep Screen (Rapid) Negative (Negative)
[2024-01-02 19:49] VITALS: BP 117/88; PULSE 73; RESP 15; TEMP 36.8; O2SAT 98
[2024-01-02 19:53] LABS: Coronavirus 19, PCR Not Detected (NotDetected); Influenza A, PCR Not Detected (NotDetected); Influenza B, PCR Not Detected (NotDetected)
== END 2024-01-02 19:50 | disposition home or self-care (01) ==
PROVIDERS: Emergency Provider Nurse Practitioner Family; PCP Family Medicine
DX: J02.9 Acute pharyngitis, unspecified (principal)
CPT/HCPCS: 87636; 87880; 99213; G0381

== ENCOUNTER 2024-01-15 15:25 | Outpatient (CLI) | payer BC, SELFPAY ==
[2024-01-15 16:03] LABS: Basophils # 0.1 K/mm3 (0-0.2); Basophils % 0.5 % (0.1-2.0); Eosinophils # 0.1 K/mm3 (0.0-0.4); Eosinophils % 1.3 % (0.1-12.0); Hematocrit 33.3 % (37.0-47.0); Hemoglobin 11.9 g/dL (12.2-16.2); Lymphocytes # 2.6 K/mm3 (0.7-4.5); Lymphocytes % 27.9 % (10-50); Mean Corpuscular HGB Conc 35.8 g/dL (31.8-35.4); Mean Corpuscular Hemoglobin 28.6 pg (27.0-31.2); Mean Platelet Volume 7.2 fl (7.4-10.4); Monocytes # 0.5 K/mm3 (0.1-1.0); Monocytes % 4.9 % (1.7-9.3); Neutrophils % 65.4 % (37.0-80.0); Platelet Count 325 K/mm3 (142-424); Red Blood Count 4.16 M/mm3 (4.20-5.40); Red Cell Distribution Width 14.1 % (11.5-17.5); White Blood Count 9.1 K/mm3 (4.5-13.0)
[2024-01-15 18:23] LABS: HIV (1&2) Antibody Rapid NONREACTIVE (NONREACTIVE)
[2024-01-16 08:22] LABS: HCV Ab Non Reactive (Non Reactive); Hepatitis B Surface Antigen Negative (Negative)
[2024-01-16 12:17] LABS: Rapid Plasma Reagin Ab Titer Non Reactive titer (NonRea<1:1)
== END 2024-01-15 23:59 | disposition home or self-care (01) ==
LOC: LAB 15:26
PROVIDERS: PCP Family Medicine; Visit Provider Obstetrics & Gynecology
DX: Z34.80 Encounter for supervision of other normal pregnancy, unspecified trimester (principal)
CPT/HCPCS: 36415; 85025; 86593; 86762; 86803; 86850; 87086; 87340; 87389

== ENCOUNTER 2024-03-12 12:53 | Outpatient (CLI) | payer BC, SELFPAY ==
--- NOTE | 2024-03-12 12:54 | US_ITS ---
PROCEDURE: US OB /MATERNAL DETAIL CLINICAL INDICATION: 20 week +Anatomy Scan-US OB Complete COMPARISON: CT CT ABDOMEN PELVIS W CON from 09/06/2022 FINDINGS: Transabdominal sonographic images of the pelvis were obtained. From her established due date she is 20 weeks 2 days. Single viable intrauterine gestation. Breech position. Placenta: Posteriorplacenta grade 1. There is an average amount of fluid. The cervix appears satisfactory. Closed and measuring 4.53 cm in length. Complete survey performed and was unremarkable on the submitted images as in PACS. No discrete anomalies identified on survey imaging by technologist. Active fetus. Three-vessel cord with satisfactory umbilical cord insertion. 4- chamber heart noted. Situs, aortic arch, LVOT, RVOT, three-vessel view appear normal. Survey of brain & ventricles Unremarkable. Cerebellum, thalamus, choroid plexus, cisterna magna appear normal. Face and neck survey unremarkable. Profile and nasion not visualized secondary to position. Lips and nose appeared normal. Diaphragm and chest views unremarkable. Abdomen: The left kidney appears normal and the right kidney appears multi-cystic. The right kidney measures 1.98 cm x 1.8 cm. Normal renal tissue was not visualized. Stomach and bladder noted and satisfactory. Spine: Survey of the spine satisfactory with no anomalies identified nor imaged. Cervical, thoracic, lower spine appear normal. Both arms and legs noted. Amniotic Fluid: Adequate. MVP 4.64 cm Measurements: Average ultrasound age 20weeks 4days. Estimated due date by ultrasound age 0507/26/2024. Estimated weight 356g BPD = 20weeks 3days HC = 20weeks 5days AC = 20weeks 5days FL = 20weeks 2days Growth Percentile= 56 Heart Rate = 139bpm Cerebellum = 19weeks 2days Humerus = 20weeks 2days HC/AC is 1.17 FL/BPD is 0.68 FL/AC is 0.21 IMPRESSION: 1. Viable fetus in the breech presentation with a posterior placenta grade 1. 2. Fluid is within normal limits MVP 4.64 cm. 3. The left kidney is seen and appears normal. The right kidney appears to be a polycystic structure. Suggest a maternal medicine consult. 4. profile is not visualized well today due to position. 5. The rest of the anatomical scan appears normal. 6. biometry is consistent with the dates. Dictated by: Eric Ramsey MD 03/13/2024 09:15 Eric Ramsey MD in [place] 03/13/2024 09:15
== END 2024-03-12 23:59 | disposition home or self-care (01) ==
LOC: RAD 12:54
PROVIDERS: PCP Family Medicine; Visit Provider Obstetrics & Gynecology
DX: Z36.3 Encounter for antenatal screening for malformations (principal); Z3A.20 20 weeks gestation of pregnancy; O26.892 Other specified pregnancy related conditions, second trimester; Z67.91 Unspecified blood type, Rh negative
CPT/HCPCS: 76811

== ENCOUNTER 2024-03-21 18:12 | Emergency (ER) | payer BC, SELFPAY ==
[2024-03-21 18:23] VITALS: BP 134/80; PULSE 67; RESP 18; TEMP 36.6; O2SAT 96; BMI 29.7
[2024-03-21 18:30] LABS: Apearance,Urine Clear (Clear); Color,Urine Yellow (Yellow); PH,Urine 6.5 (5.0-8.5); Specific Gravity, Urine 1.015 (1.005-1.030)
[2024-03-21 18:31] LABS: Bilirubin,Urine Negative (Negative); Blood, Urine Negative (Negative); Glucose,Urine (UA) Negative (Negative); Ketones,Urine Negative (Negative); Protein,Urine Negative (Negative); UTC Leukocyte Esterase,Urine Trace (Negative); UTC Nitrate,Urine Negative (Negative); Urobilinogen,Urine 1 EU/dl (0.2)
--- NOTE | 2024-03-21 18:57 | ED_ITS ---
Discharge Plan Disposition Patient Disposition: Home, Self-Care Condition: Good Prescriptions Prescriptions: New amoxicillin-pot clavulanate 875-125 mg tablet 1 tab PO Q12H 10 Days Qty: 20 0RF No Action Classic 28 mg iron- 800 mcg tablet 1 tab PO DAILY ferrous sulfate [FeroSul] 325 mg (65 mg iron) tablet 325 mg PO DAILY magnesium 250 mg tablet 250 mg PO DAILY polyethylene glycol 3350 [Miralax] 17 gram/dose powder 17 g PO DAILY promethazine 25 mg tablet 25 mg PO TID PRN (Reason: nausea and vomiting) Qty: 20 0RF Referrals Follow up/Referrals: Joana Ayoub [Primary Care Provider] - See instructions Activity Restrictions/Add. Instructions Additional Instructions/Restrictions: Take medication as prescribed. Increase fluids. Apply Aquaphor/Desitin to vaginal area as needed for atopic dermatitis. Keep follow up with [facility]. Clinical Impressions Clinical Impression: UTI (urinary tract infection) Qualifiers: Urinary tract infection type: acute cystitis Hematuria presence: without hematuria Qualified Code(s): N30.00 - Acute cystitis without hematuria URI (upper respiratory infection) Qualifiers: URI type: unspecified URI Qualified Code(s): J06.9 - Acute upper respiratory infection, unspecified Instructions Patient Instructions: Urinary Tract Infection (UTI) in , DI for Urinary Tract Infection (UTI), DI for Viral Upper Respiratory Infection -- Adult Print Language Print Language: Kazakh Discharge ED Provider: Sherri Ballard [facility] General Stated complaint: poss yeast inf, 21 weeks Mode of Arrival: Ambulatory Source of Information: Patient Time Seen by Provider: 03/21/24 18:30 Description of Symptoms (Recalled from Triage Doc. by RN): POSS YEAST INFECTION, ITCHING, BURNING, DISCHARGE, RED X 2 WEEKS 21 WEEKS PREG. HEENT Symptoms (Recalled from RN notes): No Resp Symptoms (Recalled from RN notes): No Skin Symptoms (Recalled from RN notes): No MS Symptoms (Recalled from RN notes): No Functional Status (Recalled from RN notes): WNL History of Present Illness Provider Complaint: Pt reports that she had a vaginal swab for possible yeast from OB (results were negative). She reports burning, discharge, redness, and itching. Related Data Home Medications ?Medication ?Instructions ?Recorded ?Confirmed vits no.126-ferrous fum 1 tab PO DAILY 12/13/23 03/21/24 28 mg iron-folic acid 800 mcg tablet (Classic ) ferrous sulfate 325 mg (65 mg 325 mg PO DAILY 02/12/24 03/21/24 iron) tablet (FeroSul) magnesium 250 mg tablet 250 mg PO DAILY 03/12/24 03/21/24 polyethylene glycol 3350 17 17 g PO DAILY 03/12/24 03/21/24 gram/dose oral powder (Miralax) Previous Rx's ?Medication ?Instructions ?Recorded promethazine 25 mg tablet 25 mg PO TID PRN nausea and 01/02/24 vomiting #20 tabs amoxicillin 875 mg-potassium 1 tab PO Q12H 10 days #20 tabs 03/21/24 clavulanate 125 mg tablet Allergies Allergy/AdvReac Type Severity Reaction Status Date / Time No Known Allergies Allergy Verified 03/12/24 13:50 Worker's Comp Is this a Worker's Comp case?: No [facility] Disclaimer: The information contained in this section may have been updated after the patient was seen, as this information can be updated by other users. 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 occupational status: employed and student Travel in the last 8 weeks: None household members: family housing: house Have you lived/traveled outside US in past 30 days?: No Contact w/someone who lives/traveled outside US past 30 days?: No Exposure to someone with infectious disease in past 14 days?: No Do you have a fever (greater than 100.4 F or 38 C)?: No Have you tested positive for COVID-19: No Exposed to someone with COVID-19 in past 14 days?: No Do you have a sore throat?: No Do you have a cough?: No Do you have any weakness?: No Do you have any diarrhea?: No Are you experiencing any unusual bleeding?: No Do you have any muscle aches/pain?: No Do you have any abdominal pain?: No Are you experiencing loss of taste or smell?: No ROS Obtained: Yes All systems reviewed & no additional complaints except as documented Constitutional Constitutional: Reports system reviewed and no additional complaints, except as documented Eyes Eyes: Reports system reviewed and no additional complaints, except as documented ENT Ears, Nose, Mouth, and Throat: Reports system reviewed and no additional complaints, except as documented Cardiovascular Cardiovascular: Reports system reviewed and no additional complaints, except as documented Respiratory Respiratory: Reports system reviewed and no additional complaints, except as documented and Reports cough Gastrointestinal Gastrointestingal: Reports system reviewed and no additional complaints, except as documented Comments: 21 weeks . Genitourinary Female Genitourinary: Reports system reviewed and no additional complaints, except as documented, Reports as per HPI, Reports dysuria, Reports vaginal discharge and Reports vaginal pruritus Musculoskeletal Musculoskeletal: Reports system reviewed and no additional complaints, except as documented Integumentary/Breasts Skin/Breast: Reports system reviewed and no additional complaints, except as documented Neurologic Neurologic: Reports system reviewed and no additional complaints, except as documented Endocrine Endocrine: Reports system reviewed and no additional complaints, except as documented Hematologic/Lymphatic Henatologic/Lymphatic: Reports system reviewed and no additional complaints, except as documented Allergic/Immunologic Allergic/Immunologic: Reports system reviewed and no additional complaints, except as documented Physical Exam General General appearance: alert and in no apparent distress Head Head exam: atraumatic and normocephalic Eye Eye exam: Present normal appearance ENT ENT exam: Present normal exam Neck Neck exam: Present normal inspection Chest Chest inspection: Present normal inspection and symmetric chest wall rise Respiratory Respiratory exam: Present other Expanded Respiratory Exam Location: Left: rhonchi, Right: rhonchi and Lower: rhonchi Cardiovascular Cardiovascular exam: Present regular rate and normal rhythm Abdominal Exam Abdominal exam: Present normal bowel sounds Extremities Exam Extremities exam: Present normal inspection Back Exam Back exam: Present normal inspection Neurological Exam Neurological exam: Present alert and oriented X3 Psychiatric Psychiatric exam: Present normal affect and normal mood Skin Skin exam: Present warm, dry and intact Lymphatic Lymphatic Findings: no adenopathy Medical Decision Making Medical Records Screening: Per USPSTF and CDC recommendations, given the prevalence of disease in our region, it is our hospital?s policy to screen for HIV and viral Hepatitis for all patients aged 18 and over and those with ongoing risk factors. Gamaliel Inquiry Pt receiving controlled substance: No Gamaliel was queried for this patient: No Vital Signs: 03/21/24 18:23 Temperature 97.8 F Temperature Source Oral Pulse Rate [Left Radial] 67 Respiratory Rate 18 Blood Pressure [Left Arm] 134/80 Blood Pressure Mean [Left Arm] 98 02 Sat by Pulse Oximetry 96 Lab Data Lab Results 03/21/24 18:29: Urine Color Yellow, Urine Appearance Clear, Urine pH 6.5, Ur Specific [place] 1.015, Urine Protein Negative, Urine Glucose (UA) Negative, Urine Ketones Negative, Urine Blood Negative, Urine Nitrate Negative, Urine Bilirubin Negative, Urine Urobilinogen 1, Ur Leukocyte Esterase Trace Orders (Tests/Meds): ORDERS Category Date Time Status Urine Culture Stat Micro 03/21/24 18:33 Received
[2024-03-21 19:07] VITALS: BP 134/80; PULSE 67; RESP 18; TEMP 36.6
== END 2024-03-21 19:10 | disposition home or self-care (01) ==
PROVIDERS: Emergency Provider Nurse Practitioner Family; PCP Family Medicine
DX: N30.00 Acute cystitis without hematuria (principal); J06.9 Acute upper respiratory infection, unspecified
CPT/HCPCS: 81003; 87086; 99213; G0381

== ENCOUNTER 2024-03-26 12:28 | Outpatient (CLI) | payer BC, SELFPAY ==
--- NOTE | 2024-03-26 12:32 | US_ITS ---
PROCEDURE: US OB FOLLOW UP CLINICAL INDICATION: Follow up scan for Profile due to position COMPARISON: US US OB /MATERNAL DETAIL from 03/12/2024 FINDINGS: Transabdominal sonographic images of the pelvis were obtained. The following parameters are obtained: From her established due date she is 22weeks 2days Viable fetus in the cephalic presentation with a posterior placenta grade 1. The cervix measures 3.7 cm. heart rate: 149bpm bpm. BPD: 22weeks 6days HC: 22weeks 4days AC: 23weeks 6days FL: 22weeks 4days HC/AC: 1.07 FL/BPD: 0.71 FL/AC: 0.21 Growth percentile: 49 Amniotic fluid: MVP 5.42 cm No obvious anomalies evident. profile seen, nasion, stomach, bladder, three-vessel cord, four chamber heart appear normal. One kidney continues to have a polycystic appearance. IMPRESSION: 1. Viable fetus in the cephalic presentation with a posterior placenta grade 1. 2. The fluid is within normal limits with an MVP 5.42 cm. 3. There has been good interval growth with the fetus currently 49th percentile. 4. Fetus continues to have 1 kidney that appears polycystic. The other kidney appears normal. 5. profile is seen today and appears normal. Nasion is seen. 6. The rest of the limited anatomical scan appears normal. Dictated by: Eric Ramsey MD 03/26/2024 14:49 Eric Ramsey MD in [place] 03/26/2024 14:49
== END 2024-03-26 23:59 | disposition home or self-care (01) ==
LOC: RAD 12:30
PROVIDERS: PCP Family Medicine; Visit Provider Obstetrics & Gynecology
DX: Z36.2 Encounter for other antenatal screening follow-up (principal); Z3A.22 22 weeks gestation of pregnancy
CPT/HCPCS: 76816

== ENCOUNTER 2024-03-28 17:32 | Emergency (ER) | payer BC, SELFPAY ==
[2024-03-28 17:45] VITALS: BP 141/90; PULSE 71; RESP 18; TEMP 36.7; O2SAT 99; BMI 31.1
--- NOTE | 2024-03-28 18:25 | EXP.UTC ---
Discharge Plan Disposition Patient Disposition: Home, Self-Care Condition: Good Prescriptions Prescriptions: New clotrimazole [Clotrimazole-7] 1 % cream 1 appful vaginal HS Qty: 45 1RF No Action Classic 28 mg iron- 800 mcg tablet 1 tab PO DAILY ferrous sulfate [FeroSul] 325 mg (65 mg iron) tablet 325 mg PO DAILY magnesium 250 mg tablet 250 mg PO DAILY polyethylene glycol 3350 [Miralax] 17 gram/dose powder 17 g PO DAILY Referrals Follow up/Referrals: Joana Ayoub [Primary Care Provider] - See instructions Activity Restrictions/Add. Instructions Additional Instructions/Restrictions: Use cream as directed. Follow up with OFFICE MACHINE SERVICER. Should have improvement within 72 hours. Clinical Impressions Clinical Impression: Candidiasis of vagina Instructions Patient Instructions: DI for Vaginal Yeast Infection Print Language Print Language: [place] Discharge ED Provider: Sherri Ballard [facility] General Stated complaint: rash in groin area Mode of Arrival: Ambulatory Source of Information: Patient Limitations: No Limitations Time Seen by Provider: 03/28/24 18:25 Description of Symptoms (Recalled from Triage Doc. by RN): PATIENT C/O RASH, REDNESS, ITCHING, AND DISCHARGE TO VAGINAL/GENITAL AREA AND LOWER BACK CRAMPS. PATIENT WAS SEEN TWICE FOR THE SAME RASH LAST WEEK AND STATES IT HAS GOTTEN WORSE HEENT Symptoms (Recalled from RN notes): No Resp Symptoms (Recalled from RN notes): No Skin Symptoms (Recalled from RN notes): No MS Symptoms (Recalled from RN notes): No Functional Status (Recalled from RN notes): WNL History of Present Illness Provider Complaint: Pt was seen a week ago and prescribed antibiotics. She reports that she has had a vaginal rash that has worsened since that time with blisters in her groin area that itch. She reports a white discharge. Related Data Home Medications ?Medication ?Instructions ?Recorded ?Confirmed vits no.126-ferrous fum 1 tab PO DAILY 12/13/23 03/28/24 28 mg iron-folic acid 800 mcg tablet (Classic ) ferrous sulfate 325 mg (65 mg 325 mg PO DAILY 02/12/24 03/28/24 iron) tablet (FeroSul) magnesium 250 mg tablet 250 mg PO DAILY 03/12/24 03/28/24 polyethylene glycol 3350 17 17 g PO DAILY 03/12/24 03/28/24 gram/dose oral powder (Miralax) Previous Rx's ?Medication ?Instructions ?Recorded clotrimazole 1 % vaginal cream 1 appful vaginal HS #45 grams 03/28/24 (Clotrimazole-7) Allergies Allergy/AdvReac Type Severity Reaction Status Date / Time No Known Allergies Allergy Verified 03/12/24 13:50 Worker's Comp Is this a Worker's Comp case?: [facility] Disclaimer: The information contained in this section may have been updated after the patient was seen, as this information can be updated by other users. Medical History (Updated 03/28/24 @ 18:42 by Sherri Ballard APRN) Vulvovaginitis Rh negative state in antepartum period Vaginitis Vaginal discharge Urinary tract infection Migraine Surgical History [place] teeth extracted Family History Grandmother COPD (chronic obstructive pulmonary disease) Social History Smoking Status: Never smoker alcohol intake: never substance use type: denies use current occupational status: employed and student Travel in the last 8 weeks: None household members: family housing: house Have you lived/traveled outside US in past 30 days?: No Contact w/someone who lives/traveled outside US past 30 days?: No Exposure to someone with infectious disease in past 14 days?: No Do you have a fever (greater than 100.4 F or 38 C)?: No Have you tested positive for COVID-19: No Exposed to someone with COVID-19 in past 14 days?: No Do you have a sore throat?: No Do you have a cough?: No Do you have any weakness?: No Do you have any diarrhea?: No Are you experiencing any unusual bleeding?: No Do you have any muscle aches/pain?: No Do you have any abdominal pain?: No Are you experiencing loss of taste or smell?: No ROS Obtained: Yes All systems reviewed & no additional complaints except as documented Constitutional Constitutional: Reports system reviewed and no additional complaints, except as documented Eyes Eyes: Reports system reviewed and no additional complaints, except as documented ENT Ears, Nose, Mouth, and Throat: Reports system reviewed and no additional complaints, except as documented and Reports nasal discharge Cardiovascular Cardiovascular: Reports system reviewed and no additional complaints, except as documented Respiratory Respiratory: Reports system reviewed and no additional complaints, except as documented and Reports cough Gastrointestinal Gastrointestingal: Reports system reviewed and no additional complaints, except as documented Genitourinary Female Genitourinary: Reports system reviewed and no additional complaints, except as documented Musculoskeletal Musculoskeletal: Reports system reviewed and no additional complaints, except as documented Integumentary/Breasts Skin/Breast: Reports system reviewed and no additional complaints, except as documented Neurologic Neurologic: Reports system reviewed and no additional complaints, except as documented Endocrine Endocrine: Reports system reviewed and no additional complaints, except as documented Hematologic/Lymphatic Henatologic/Lymphatic: Reports system reviewed and no additional complaints, except as documented Allergic/Immunologic Allergic/Immunologic: Reports system reviewed and no additional complaints, except as documented Physical Exam General General appearance: alert and in no apparent distress Head Head exam: atraumatic and normocephalic Eye Eye exam: Present normal appearance Expanded ENT Exam External ear exam: Present normal external inspection Nasal speculum exam: Bilateral: normal Mouth exam: Present normal external inspection Teeth exam: Present normal inspection Throat exam: Present normal inspection Neck Neck exam: Present normal inspection; Absent lymphadenopathy Chest Chest inspection: Present normal inspection and symmetric chest wall rise Respiratory Respiratory exam: Present other Expanded Respiratory Exam Location: Left: rhonchi, Upper: rhonchi and Lower: rhonchi Cardiovascular Cardiovascular exam: Present regular rate and normal rhythm Abdominal Exam Abdominal exam: Present normal bowel sounds Comment: 21 weeks External exam: Present erythema, tenderness and other (ruptured blisters noted) Extremities Exam Extremities exam: Present normal inspection Back Exam Back exam: Present normal inspection Neurological Exam Neurological exam: Present alert and oriented X3 Psychiatric Psychiatric exam: Present normal affect and normal mood Skin Skin exam: Present warm, dry and intact Lymphatic Lymphatic Findings: no adenopathy Medical Decision Making Medical Records Screening: Per USPSTF and CDC recommendations, given the prevalence of disease in our region, it is our hospital?s policy to screen for HIV and viral Hepatitis for all patients aged 18 and over and those with ongoing risk factors. Gamaliel Inquiry Pt receiving controlled substance: No Gamaliel was queried for this patient: No Vital Signs: 03/28/24 17:45 Temperature 98.1 F Temperature Source Oral Pulse Rate [Left Brachial] 71 Respiratory Rate 18 Blood Pressure [Left Arm] 141/90 H Blood Pressure Mean [Left Arm] 107 Blood Pressure Source [Left Arm] Automatic Cuff Blood Pressure Position [Left Arm] Sitting 02 Sat by Pulse Oximetry 99 Oxygen Delivery Method Room Air
[2024-03-28 18:40] VITALS: BP 141/90; PULSE 71; RESP 18; TEMP 36.7; O2SAT 99
== END 2024-03-28 18:45 | disposition home or self-care (01) ==
PROVIDERS: Emergency Provider Nurse Practitioner Family; PCP Family Medicine
DX: B37.31 Acute candidiasis of vulva and vagina (principal); R21 Rash and other nonspecific skin eruption; N89.8 Other specified noninflammatory disorders of vagina; R09.81 Nasal congestion
CPT/HCPCS: 99212; G0381

== ENCOUNTER 2024-04-29 13:50 | Outpatient (CLI) | payer BC, SELFPAY ==
[2024-04-29 16:13] LABS: Basophils % 0.4 % (0.1-2.0); Eosinophils # 0.1 K/mm3 (0.0-0.4); Eosinophils % 0.7 % (0.1-12.0); Hematocrit 34.1 % (37.0-47.0); Lymphocytes # 2.3 K/mm3 (0.7-4.5); Lymphocytes % 20.6 % (10-50); Mean Corpuscular HGB Conc 32.3 g/dL (31.8-35.4); Mean Corpuscular Hemoglobin 28.1 pg (27.0-31.2); Mean Corpuscular Volume 87.2 fl (81-99); Monocytes # 0.8 K/mm3 (0.1-1.0); Neutrophils # 7.9 K/mm3 (1.8-7.8); Neutrophils % 70.5 % (37.0-80.0); Platelet Count 350 K/mm3 (142-424); Red Blood Count 3.91 M/mm3 (4.20-5.40); Red Cell Distribution Width 13.6 % (11.5-17.5); White Blood Count 11.2 K/mm3 (4.8-10.8)
[2024-04-29 16:32] LABS: Glucose 1 Hour 135 mg/dL (74-100)
[2024-04-29 23:58] LABS: RPR W/RFX Titers Nonreactive (Nonreactive)
== END 2024-04-29 23:59 | disposition home or self-care (01) ==
PROVIDERS: PCP Family Medicine; Visit Provider Obstetrics & Gynecology
DX: Z34.82 Encounter for supervision of other normal pregnancy, second trimester (principal)
CPT/HCPCS: 36415; 82947; 85025; 86592

== ENCOUNTER 2024-05-04 08:02 | Outpatient (CLI) | payer BC, SELFPAY ==
[2024-05-04] MEDS: RHO(D) IMMUNE GLOBULIN 1,500 UNIT (300MCG) SYRINGE 300 MCG IM (10:00)
[2024-05-04 10:05] VITALS: BP 128/83; PULSE 99; RESP 18; TEMP 36.4; O2SAT 100
[2024-05-04 15:40] LABS: Glucose 1 Hour 125 mg/dL (74-100); Glucose,Fasting 83 mg/dl (74-100)
[2024-05-04 15:41] LABS: Glucose 2 Hour 120 mg/dL (74-100); Glucose 3 Hour 106 mg/dL (74-100)
== END 2024-05-04 10:05 | disposition home or self-care (01) ==
PROVIDERS: PCP Family Medicine; Visit Provider Obstetrics & Gynecology
DX: E74.39 Other disorders of intestinal carbohydrate absorption (principal); O26.899 Other specified pregnancy related conditions, unspecified trimester; Z67.91 Unspecified blood type, Rh negative
CPT/HCPCS: 36415; 82951; 96372; J2790

== ENCOUNTER 2024-06-06 21:42 | Emergency (ER) | payer BC, SELFPAY ==
[2024-06-06] VITALS (7 sets, daily range): BP systolic 121–129; BP diastolic 86–89; PULSE 67–84; RESP 16–25; TEMP 36.6; O2SAT 96–100; BMI 31.2
--- NOTE | 2024-06-06 21:51 | ECG_ITS ---
APPROVED REPORT Exam: Resting ECG HR:80 bpm ECG Measurements Heart Rate 80 AXES WY 142 P 55 QRSd 87 QRS 89 QT 374 T -5 QTc 410 Conclusion SINUS RHYTHM WITH SINUS ARRHYTHMIA NONSPECIFIC T-WAVE ABNORMALITY ABNORMAL ECG No STEMI Electronically signed by : BAO AWAN, 06/07/2024 00:20:24
--- NOTE | 2024-06-06 21:52 | XR_ITS ---
PROCEDURE INFORMATION: Exam: XR Chest Exam date and time: 06/06/2024 10:22 PM Age: 19 years old Clinical indication: Other: Chest pain TECHNIQUE: Imaging protocol: Radiologic exam of the chest. Views: 1 view. COMPARISON: CT ABDOMEN PELVIS W CON 09/06/2022 9:06 PM FINDINGS: Lungs: Unremarkable. No consolidation. Pleural spaces: Unremarkable. No pleural effusion. No pneumothorax. Heart/Mediastinum: Unremarkable. No cardiomegaly. Bones/joints: Unremarkable. IMPRESSION: No acute findings.
--- NOTE | 2024-06-06 21:59 | HMH.EDGENADL ---
Discharge Plan Disposition Patient Disposition: Home, Self-Care Prescriptions Prescriptions: No Action Classic 28 mg iron- 800 mcg tablet 1 tab PO DAILY ferrous sulfate [FeroSul] 325 mg (65 mg iron) tablet 325 mg PO DAILY magnesium 250 mg tablet 250 mg PO DAILY polyethylene glycol 3350 [Miralax] 17 gram/dose powder 17 g PO DAILY Referrals Follow up/Referrals: Joana Ayoub [Primary Care Provider] - See instructions Activity Restrictions/Add. Instructions Additional Instructions/Restrictions: Continue taking Pepcid at home. You may also take Tums as needed. Recommend sitting propped up and not eating within a few hours before bed. Follow-up with CODE ENFORCEMENT SUPERVISOR. Please return the emerged part with any new, concerning, worsening symptoms. Clinical Impressions Clinical Impression: Chest pain Qualifiers: Chest pain type: unspecified Qualified Code(s): R07.9 - Chest pain, unspecified Acid reflux Qualifiers: Esophagitis presence: esophagitis presence not specified Qualified Code(s): K21.9 - Gastro-esophageal reflux disease without esophagitis Print Language Print Language: [place] Discharge ED Provider: Tan Munroe General Adult HPI General Chief complaint: Chest Pain Stated complaint: 32 weeks with chect pain,indigestion Time Seen by Provider: 06/06/24 21:46 Mode of Arrival: Ambulatory Source of Information: Patient Description of Symptoms (Recalled from ER Triage Doc. by RN): Pateint reports this past week she started feeling flushed, burning from the inside out. Left arm and lips went numb one day. reports feeling weak and nauseous. patient reports chest and neck pain. dull sharp pains from her vagina radiating up. Reports she came in tonight related to the burning inside out and feeling off. History of Present Illness HPI narrative: This is a 19-year-old female G1, P0 who presents with substernal chest pain. States that it feels like reflux coming up in the middle of her chest. Has been taking Pepcid with some occasional relief. States that she is also having the sensation of feeling flushed. States that her left arm and her lips went numb 1 day but this is resolved. Related Data Home Medications ?Medication ?Instructions ?Recorded ?Confirmed vits no.126-ferrous fum 1 tab PO DAILY 12/13/23 06/06/24 28 mg iron-folic acid 800 mcg tablet (Classic ) ferrous sulfate 325 mg (65 mg 325 mg PO DAILY 02/12/24 06/06/24 iron) tablet (FeroSul) magnesium 250 mg tablet 250 mg PO DAILY 03/12/24 06/06/24 polyethylene glycol 3350 17 17 g PO DAILY 03/12/24 06/06/24 gram/dose oral powder (Miralax) Allergies Allergy/AdvReac Type Severity Reaction Status Date / Time No Known Allergies Allergy Verified 05/27/24 15:58 [facility] Disclaimer: The information contained in this section may have been updated after the patient was seen, as this information can be updated by other users. Medical History Vulvovaginitis Rh negative state in antepartum period Vaginitis Vaginal discharge Urinary tract infection Migraine Surgical History [place] teeth extracted Family History Grandmother COPD (chronic obstructive pulmonary disease) Social History Smoking Status: Never smoker alcohol intake: never substance use type: denies use current occupational status: employed and student Travel in the last 8 weeks: None household members: family housing: house Have you lived/traveled outside US in past 30 days?: No Contact w/someone who lives/traveled outside US past 30 days?: No Exposure to someone with infectious disease in past 14 days?: No Do you have a fever (greater than 100.4 F or 38 C)?: No Have you tested positive for COVID-19: No Exposed to someone with COVID-19 in past 14 days?: No Do you have a sore throat?: No Do you have a cough?: No Do you have any weakness?: No Do you have any diarrhea?: No Are you experiencing any unusual bleeding?: No Do you have any muscle aches/pain?: No Do you have any abdominal pain?: No Are you experiencing loss of taste or smell?: No Other Medical History Have you received the Flu Vaccine for this season: Yes Have you received the Pneumonia Vaccine: No ROS Obtained: Yes All systems reviewed & no additional complaints except as documented Physical Exam General General appearance: alert and in no apparent distress Eye Eye exam: Present normal appearance, PERRL and EOMI Respiratory Respiratory exam: Present normal lung sounds bilaterally; Absent respiratory distress Cardiovascular Cardiovascular exam: Present regular rate and normal rhythm Abdominal Exam Abdominal exam: Present soft; Absent tenderness, guarding or rebound Comment: Gravid abdomen Extremities Exam Extremities exam: Present normal inspection Neurological Exam Neurological exam: Present alert and oriented X3 Skin Skin exam: Present warm and dry Medical Decision Making Medical Records Medical records reviewed: Yes I reviewed the patient's medical records. Screening: Per USPSTF and CDC recommendations, given the prevalence of disease in our region, it is our hospital?s policy to screen for HIV and viral Hepatitis for all patients aged 18 and over and those with ongoing risk factors. MR Comment: CODE ENFORCEMENT SUPERVISOR clinic visit from 05/27/2024 notable for uncomplicated at 31 weeks and 1 day Gamaliel Inquiry Pt receiving controlled substance: No Vital Signs: 06/06/24 21:52 06/06/24 21:56 06/06/24 21:59 Temperature 97.9 F Temperature Source Oral Pulse Rate 79 67 Pulse Rate [Apical] 84 Respiratory Rate 16 18 Blood Pressure 129/87 Blood Pressure [Right Arm] 128/89 Blood Pressure Mean [Right Arm] 102 Blood Pressure Source [Right Arm] Automatic Cuff Blood Pressure Position [Right Arm] Sitting 02 Sat by Pulse Oximetry 97 99 Oxygen Delivery Method Room Air Room Air 06/06/24 22:00 06/06/24 22:15 06/06/24 22:45 Temperature Temperature Source Pulse Rate 67 71 68 Pulse Rate [Apical] Respiratory Rate 18 18 25 H Blood Pressure 128/89 128/89 121/86 Blood Pressure [Right Arm] Blood Pressure Mean [Right Arm] Blood Pressure Source [Right Arm] Blood Pressure Position [Right Arm] 02 Sat by Pulse Oximetry 97 96 100 Oxygen Delivery Method Room Air 06/06/24 23:44 06/07/24 00:11 Temperature 98.3 F Temperature Source Temporal Artery Scan Pulse Rate 69 70 Pulse Rate [Apical] Respiratory Rate 16 18 Blood Pressure 129/87 125/81 Blood Pressure [Right Arm] Blood Pressure Mean [Right Arm] Blood Pressure Source [Right Arm] Blood Pressure Position [Right Arm] 02 Sat by Pulse Oximetry 99 Oxygen Delivery Method Room Air Lab Data Lab Results 06/06/24 22:10: WBC 11.2 H, RBC 3.95 L, Hgb 11.0 L, Hct 33.3 L, MCV 84.3, MCH 27.8, MCHC 33.0, RDW 13.1, Plt Count 348, MPV 10.1, Neut % (Auto) 66.9, Lymph % (Auto) 22.8, [place] % (Auto) 8.5, Eos % (Auto) 1.1, Baso % (Auto) 0.3, Neut # (Auto) 7.5, Lymph # (Auto) 2.6, [place] # (Auto) 1.0, Eos # (Auto) 0.1, Baso # (Auto) 0.0, Sodium 135 L, Potassium 3.8, Chloride 103, Carbon Dioxide 23, Anion Gap 12.8, BUN 6 L, Creatinine 0.50 L, Estimated Creat Clear 232, Estimated GFR 156, Est GFR ( Amer) 188, Glucose 86, Calcium 10.6 H, Total Bilirubin 0.6, AST 26, ALT 20, Alkaline Phosphatase 131 H, Troponin I < 0.01, Total Protein 7.2, Albumin 4.1, Globulin 3.1, Albumin/Globulin Ratio 1.3, HCV Ab SIDRA w/Rflx PCR Qn Negative, HIV Ag/Ab Combo Qual Negative 06/06/24 22:57: Urine Color Yellow, Urine Appearance Clear, Urine pH 7.0, Ur Specific Orange 1.020, Urine Protein Negative, Urine Glucose (UA) Negative, Urine Ketones Negative, Urine Blood Negative, Urine Nitrate Negative, Urine Bilirubin Negative, Urine Urobilinogen 0.2, Ur Leukocyte Esterase Negative, Urine RBC None, Urine WBC Occasional, Ur Squamous Epith Cells 3-5, Urine Bacteria 1+ 06/06/24 22:10 06/06/24 22:10 Orders (Tests/Meds): ORDERS Category Date Time Status Chest XR -- portable [XR chest portable] Stat Exams 06/06/24 21:52 Completed CBC w/Auto Diff [Complete Blood Count Auto Diff] Stat Lab 06/06/24 22:10 Completed CMP [Comprehensive Metabolic Panel] Stat Lab 06/06/24 22:10 Completed HIV Combo Routine Lab 06/06/24 22:10 Completed Hepatitis C Ab Qual. W/ RFX Routine Lab 06/06/24 22:10 Completed Troponin I Stat Lab 06/06/24 22:10 Completed Urinalysis and Microscopic Stat Lab 06/06/24 22:57 Completed Urine Culture Routine Micro 06/06/24 22:57 Received ECG Data Tracing #1: I reviewed this ECG and interpreted as documented below: Normal sinus rhythm at a rate of 80, QTc 410, normal axis, no STEMI Medical Decision Narrative: In summary, this 19-year-old G1, P0 presents to the emergency department today with substernal chest pain. On initial evaluation patient is hemodynamically stable, nontoxic-appearing, afebrile, satting 100% on room air. Differential diagnosis includes but is not limited to ACS, PE, GERD, pneumonia. Based on these concerns, I ordered CBC, CMP, troponin, EKG, chest x-ray. Considered CT PE, however patient's description of her symptoms seem to be most consistent with GERD. Low clinical suspicion for pulmonary embolism as the primary etiology of her symptoms.. ECG personally interpreted as noted above. Labs personally reviewed demonstrate white blood cell count of 11.2, hemoglobin of 11, unremarkable CMP, no UTI. XR personally interpreted demonstrates no acute cardiopulmonary pathology. On reassessment patient was asymptomatic and in no acute distress. Appropriate for discharge at this time. Counseled on treatment of GERD at home. She is to follow-up with CODE ENFORCEMENT SUPERVISOR. Critical Care Critical Care Time Critical Care Time: No
[2024-06-06 22:23] LABS: Basophils % 0.3 % (0.1-2.0); Eosinophils # 0.1 K/mm3 (0.0-0.4); Eosinophils % 1.1 % (0.1-12.0); Hematocrit 33.3 % (37.0-47.0); Lymphocytes # 2.6 K/mm3 (0.7-4.5); Lymphocytes % 22.8 % (10-50); Mean Corpuscular Hemoglobin 27.8 pg (27.0-31.2); Mean Corpuscular Volume 84.3 fl (81-99); Mean Platelet Volume 10.1 fl (7.4-10.4); Monocytes % 8.5 % (1.7-9.3); Neutrophils # 7.5 K/mm3 (1.8-7.8); Neutrophils % 66.9 % (37.0-80.0); Platelet Count 348 K/mm3 (142-424); Red Blood Count 3.95 M/mm3 (4.20-5.40); Red Cell Distribution Width 13.1 % (11.5-17.5); White Blood Count 11.2 K/mm3 (4.8-10.8)
[2024-06-06 22:33] LABS: Albumin Level 4.1 g/dl (3.5-5.0); Chloride 103 mmol/L (98-107); Potassium 3.8 mmoL/L (3.5-5.1); Sodium 135 mmol/L (136-145)
[2024-06-06 22:35] LABS: Alanine Aminotransferase 20 U/L (12-78); Anion Gap 12.8 mEq/L (5-15); Aspartate Amino Transferase 26 U/L (14-36); Blood Urea Nitrogen 6 mg/dl (7-17); Carbon Dioxide 23 mmol/L (22.0-30.0); Creatinine Clearance Estimated 232 mL/min (50-200); Estimated Glomerular Filt Rate 156 ml/min (>60); GFR (African American) 188 ML/MIN (>60)
[2024-06-06 22:36] LABS: Albumin/Globulin Ratio 1.3 (1.1-1.8); Alkaline Phosphatase 131 U/L (38-126); Bilirubin,Total 0.6 mg/dl (0.2-1.3); Calcium 10.6 mg/dl (8.4-10.2); Globulin 3.1 g/dL (1.3-3.2); Glucose 86 mg/dl (74-100); Total Protein,Serum 7.2 g/dl (6.3-8.2)
[2024-06-06 22:49] LABS: Troponin I < 0.01 ng/ml (0.00-0.034)
[2024-06-06 23:01] LABS: Microscopic, Urine URINE MICROSCOPIC (MICROSCOPIC)
[2024-06-06 23:02] LABS: Appearance,Urine CLEAR (Clear); Bilirubin,Urine Negative (Negative); Blood, Urine Negative (Negative); Color,Urine YELLOW (Yellow); Glucose,Urine (UA) Negative (Negative); Ketones,Urine Negative (Negative); Leukocyte Esterase,Urine Negative (Negative); Nitrate,Urine Negative (Negative); Protein,Urine Negative (Negative); Urobilinogen,Urine 0.2 EU/dl (0.2)
[2024-06-06 23:17] LABS: HIV Combo NEGATIVE (Negative)
[2024-06-06 23:20] LABS: Bacteria,Urine 1+ /lpf; WBC,Urine Occasional #/hpf (0-3)
[2024-06-06 23:26] LABS: Hepatitis C Ab Qual. W/ RFX NEGATIVE (Negative)
[2024-06-07 00:11] VITALS: BP 125/81; PULSE 70; RESP 18; TEMP 36.8; O2SAT 98
== END 2024-06-07 00:12 | disposition home or self-care (01) ==
PROVIDERS: Emergency Provider Student in an Organized Health Care Education/Training Program; PCP Family Medicine
DX: K21.9 Gastro-esophageal reflux disease without esophagitis (principal); R07.9 Chest pain, unspecified; R20.2 Paresthesia of skin; R53.1 Weakness; R11.0 Nausea; M54.2 Cervicalgia; R12 Heartburn
CPT/HCPCS: 71045; 80053; 81001; 84484; 85025; 86803; 87086; 87389; 93005; 99284

== ENCOUNTER 2024-07-01 15:45 | Outpatient (CLI) | payer BC, SELFPAY | END 2024-07-01 23:59 | disposition home or self-care (01) | LOC: LAB.DROPOF 07-02 11:23 | PROVIDERS: PCP Obstetrics & Gynecology; Visit Provider Obstetrics & Gynecology | DX: Z34.83 Encounter for supervision of other normal pregnancy, third trimester (principal); Z3A.36 36 weeks gestation of pregnancy | CPT/HCPCS: 86403 ==

== ENCOUNTER 2024-07-03 13:01 | Outpatient (CLI) | payer BC, SELFPAY ==
[2024-07-03 13:28] VITALS: BMI 32.5
[2024-07-03 13:41] VITALS: BP 127/94; PULSE 89; RESP 17; TEMP 37; O2SAT 98; BMI 32.5
[2024-07-03 13:44] LABS: Microscopic, Urine URINE MICROSCOPIC (MICROSCOPIC)
[2024-07-03 13:47] LABS: Appearance,Urine SL CLOUDY (Clear); Bilirubin,Urine Negative (Negative); Blood, Urine Negative (Negative); Color,Urine YELLOW (Yellow); Glucose,Urine (UA) Negative (Negative); Ketones,Urine Negative (Negative); Leukocyte Esterase,Urine 1+ (Negative); Nitrate,Urine Negative (Negative); PH,Urine 7.5 (5.0-8.5); Protein,Urine TRACE (Negative); Urobilinogen,Urine 0.2 EU/dl (0.2)
[2024-07-03 13:56] LABS: Bacteria,Urine 4+ /lpf; Fetal Membrane Rupture (Rapid) Negative (Negative)
--- NOTE | 2024-07-03 14:25 | US_ITS ---
PROCEDURE INFORMATION: Exam: US Biophysical Profile Without Non-Stress Test Exam date and time: 07/03/2024 2:27 PM Age: 19 years old Clinical indication: Other: Dec hr on nst test; ; Additional info: Variable decels on heart rate tracing TECHNIQUE: Imaging protocol: US biophysical profile without non-stress testing. COMPARISON: US OB FOLLOW UP 03/26/2024 12:33 PM FINDINGS: Gestation: Single live IUP with cephalic position. Only left kidney visualized. Right kidney not seen. Somewhat distended bladder. heart rate: 143 bpm Amniotic fluid index: TANK is 12.64 cm. BIOPHYSICAL PROFILE: breathing (BPP): 2 /2 gross body movement (BPP): 2 /2 tone (BPP): 2 /2 Amniotic fluid (BPP): 2 /2 Biophysical profile score (BPP): 8 /8 MATERNAL ANATOMY: Cervix: Cervical length measures 3.07 cm. IMPRESSION: 1. Biophysical profile score is 8 out of 8. 2. Somewhat distended bladder. This may be transient but short-term follow-up ultrasound in 2-3 weeks to ensure resolution should be considered. 3. Absent right kidney. Follow-up ultrasound after delivery advised for further assessment.
== END 2024-07-03 16:10 | disposition home or self-care (01) ==
LOC: OBOUT 13:02 → OB 13:03
PROVIDERS: PCP Family Medicine; Visit Provider Obstetrics & Gynecology
DX: O42.913 Preterm premature rupture of membranes, unspecified as to length of time between rupture and onset of labor, third trimester (principal); Z3A.36 36 weeks gestation of pregnancy
CPT/HCPCS: 76819; 81001; 84112; 87086; G0463

== ENCOUNTER 2024-07-22 17:34 | Inpatient (IN) | payer BC, SELFPAY ==
[2024-07-22 16:40] VITALS: BMI 32.5
[2024-07-22 17:01] VITALS: BP 141/81; PULSE 80; RESP 17; TEMP 36.6; O2SAT 98; BMI 32.5
[2024-07-22 17:05] LABS: Microscopic, Urine URINE MICROSCOPIC (MICROSCOPIC)
[2024-07-22 17:20] LABS: Fetal Membrane Rupture (Rapid) Positive (Negative)
[2024-07-22 17:36] LABS: Appearance,Urine SL CLOUDY (Clear); Bilirubin,Urine Negative (Negative); Blood, Urine 3+ (Negative); Color,Urine YELLOW (Yellow); Glucose,Urine (UA) Negative (Negative); Ketones,Urine Negative (Negative); Leukocyte Esterase,Urine 1+ (Negative); Nitrate,Urine Negative (Negative); Protein,Urine 1+ (Negative); Specific Gravity, Urine 1.015 (1.005-1.030); Urobilinogen,Urine 0.2 EU/dl (0.2)
[2024-07-22 18:01] LABS: Bacteria,Urine 2+ /lpf
[2024-07-22] MEDS: BUTORPHANOL TARTRATE 1 MG/ML VIAL IV (18:12)
[2024-07-22] MEDS: LACTATED RINGERS 1000ML 1,000 ML 250 ML IV ×2 (18:12→19:20)
[2024-07-22 19:36] LABS: Basophils % 0.3 % (0.1-2.0); Eosinophils % 0.1 % (0.1-12.0); Hematocrit 33.6 % (37.0-47.0); Hemoglobin 11.1 g/dL (12.2-16.2); Immature Granulocytes # 0.08 10^3uL; Immature Granulocytes % 0.5 %; Lymphocytes # 1.8 K/mm3 (0.7-4.5); Lymphocytes % 11.4 % (10-50); Mean Corpuscular Hemoglobin 27.1 pg (27.0-31.2); Mean Corpuscular Volume 82.2 fl (81-99); Mean Platelet Volume 11.2 fl (7.4-10.4); Monocytes # 1.2 K/mm3 (0.1-1.0); Neutrophils # 12.2 K/mm3 (1.8-7.8); Neutrophils % 79.7 % (37.0-80.0); Nucleated Red Blood Cells # 0 10^3/uL; Nucleated Red Blood Cells % 0 %; Platelet Count 316 K/mm3 (142-424); Red Blood Count 4.09 M/mm3 (4.20-5.40); Red Cell Distribution Width 13.9 % (11.5-17.5); Red Cell Distribution Width-SD 40.9 fL; White Blood Count 15.3 K/mm3 (4.8-10.8)
--- NOTE | 2024-07-22 20:41 | EXP.ANES.CKL ---
[facility] Disclaimer: The information contained in this section may have been updated after the patient was seen, as this information can be updated by other users. Medical History Acute seborrheic dermatitis Vulvovaginitis Rh negative state in antepartum period Vaginitis Vaginal discharge Urinary tract infection Migraine Surgical History [place] teeth extracted Family History Grandmother COPD (chronic obstructive pulmonary disease) Social History Smoking Status: Never smoker alcohol intake: never substance use type: denies use current occupational status: employed Travel in the last 8 weeks?: None household members: family housing: house Have you lived/traveled outside US in past 30 days?: No Contact w/someone who lives/traveled outside US past 30 days?: No Exposure to someone with infectious disease in past 14 days?: No Do you have a fever (greater than 100.4 F or 38 C)?: No Have you tested positive for COVID-19?: No Exposed to someone with COVID-19 in past 14 days?: No Do you have a sore throat?: No Do you have a cough?: No Do you have any weakness?: No Do you have any diarrhea?: No Are you experiencing any unusual bleeding?: No Do you have any muscle aches/pain?: No Do you have any abdominal pain?: No Are you experiencing loss of taste or smell?: No [facility] Anesthesia Checklist Patient Identification Patient Identification: Arm Band and Verbal (Name & ) Structural Data Admitted From: Inpatient Planned Operative Procedure/s: labor epidural Consent for Planned Operative Procedure(s) Verified: Yes Verified Documents: Surgical Consent and History and Physical NPO Status Verified Time NPO: 00:00 Additional verifications Patient : Yes Anesthesia Reactions: No Airway Assessment Mallampati Score:: Class II Dentition: Good Dentition Neurological Assessment Level of Consciousness: Awake, Alert and Appropriate Hx Seizures: No Numbness or tingling in extremities: No Anesthesia Plan Anesthesia Risk discussed: Yes Anesthesia Plan: Verified ASA Class: I Anesthesia Type: Epidural
[2024-07-22] MEDS: DEXTROSE 5%-LACTATED RINGERS 1,000 ML 125 ML IV ×2 (20:53)
--- NOTE | 2024-07-22 20:58 | P.HP_ITS ---
History of Present Illness *Admission Date: 07/22/24 *Reason for visit:: Early labor, ruptured membranes *History of present illness: She is a 19-year-old 1 para 0 at 39 and 1 weeks gestational age. She thinks she may have ruptured membranes on the morning of July 22, 2024. She came into labor and delivery was found to be 3 cm dilated 80% Station -1. AmniSure was positive. As result of that she is admitted for labor and delivery. Group B streptococcus is negative. O Rh- blood Rubella immune group B streptococcus negative [facility] Disclaimer: The information contained in this section may have been updated after the patient was seen, as this information can be updated by other users. Medical History Acute seborrheic dermatitis Vulvovaginitis Rh negative state in antepartum period Vaginitis Vaginal discharge Urinary tract infection Migraine Surgical History [place] teeth extracted Family History COPD (chronic obstructive pulmonary disease) Grandmother Social History Smoking Status: Never smoker alcohol intake: never substance use type: denies use current occupational status: employed Travel in the last 8 weeks?: None household members: family housing: house Have you lived/traveled outside US in past 30 days?: No Contact w/someone who lives/traveled outside US past 30 days?: No Exposure to someone with infectious disease in past 14 days?: No Do you have a fever (greater than 100.4 F or 38 C)?: No Have you tested positive for COVID-19?: No Exposed to someone with COVID-19 in past 14 days?: No Do you have a sore throat?: No Do you have a cough?: No Do you have any weakness?: No Do you have any diarrhea?: No Are you experiencing any unusual bleeding?: No Do you have any muscle aches/pain?: No Do you have any abdominal pain?: No Are you experiencing loss of taste or smell?: No Other Medical History Have you received the Flu Vaccine for this season: No Have you received the Pneumonia Vaccine: No Review of Systems Review of Systems Review of systems:: pertinent systems reviewed and negative unless documented below Meds Home Medications and Allergies Home Medications ?Medication ?Instructions ?Recorded ?Confirmed ?Type vits no.126-ferrous fum 1 tab PO DAILY 12/13/23 07/20/24 History 28 mg iron-folic acid 800 mcg tablet (Classic ) ferrous sulfate 325 mg (65 mg 325 mg PO DAILY 02/12/24 07/20/24 History iron) tablet (FeroSul) magnesium 250 mg tablet 250 mg PO DAILY 03/12/24 07/20/24 History polyethylene glycol 3350 17 17 g PO DAILY 03/12/24 07/20/24 History gram/dose oral powder (Miralax) famotidine 20 mg tablet 20 mg PO BID 06/08/24 07/20/24 History New Prescriptions to Start Prescriptions: Allergies Allergy/AdvReac Type Severity Reaction Status Date / Time No Known Allergies Allergy Verified 07/20/24 11:22 Exam Data for Last 24 hours Vital signs and Labs for Last 24 Hours: Temp Pulse Resp BP Pulse Ox O2 Del Method 97.8 F 80 17 141/81 H 98 Room Air 07/22/24 17:01 07/22/24 17:01 07/22/24 17:01 07/22/24 17:01 07/22/24 17:01 07/22/24 17:01 Laboratory Results - last 24 hr 07/22/24 14:40: Urine Color Yellow, Urine Appearance Sl cloudy, Urine pH 7.0, Ur Specific [place] 1.015, Urine Protein 1+ A, Urine Glucose (UA) Negative, Urine Ketones Negative, Urine Blood 3+ A, Urine Nitrate Negative, Urine Bilirubin Negative, Urine Urobilinogen 0.2, Ur Leukocyte Esterase 1+ A, Urine RBC 10-20, Urine WBC 10-20, Ur Squamous Epith Cells 10-20, Urine Bacteria 2+, Membrane Rupture Positive A 07/22/24 18:05: WBC 15.3 H, RBC 4.09 L, Hgb 11.1 L, Hct 33.6 L, MCV 82.2, MCH 27.1, MCHC 33.0, RDW 13.9, Plt Count 316, MPV 11.2 H, Neut % (Auto) 79.7, Lymph % (Auto) 11.4, [place] % (Auto) 8.0, Eos % (Auto) 0.1, Baso % (Auto) 0.3, Neut # (Auto) 12.2 H, Lymph # (Auto) 1.8, [place] # (Auto) 1.2 H, Eos # (Auto) 0.0, Baso # (Auto) 0.0, Blood Type O Negative, Antibody Screen Positive I & O for Last 24 hours: Intake & Output 07/20/24 07/21/24 07/22/24 07/23/24 11:59 11:59 11:59 11:59 Weight 190 lb Constitutional Constitutional: no acute distress *Routine HEENT Exam Head: Present normocephalic Eye: Present EOMI and PERRL ENT: Present mucous membranes moist *Routine Neck Exam Neck: Present supple; Absent lymphadenopathy *Routine Respiratory Exam Respiratory: Present CTA bilaterally *Routine Cardiovascular Exam Cardiovascular: Present RRR *Routine Abdominal Exam Abdominal: Present soft and normoactive bowel sounds; Absent tenderness *Routine Rectal Exam Rectal:: deferred *Routine Genitalia Exam Genitalia:: deferred *Routine Extremities Exam Extremities: Absent cyanosis, clubbing or edema *Routine Skin Exam Skin: Present warm; Absent rash *Routine Neurological Exam Neurological: Present alert and oriented X3 Assessment and Plan *Assessment and plan (1) Delayed delivery after SROM (spontaneous rupture of membranes): Status: Acute Category: Medical Code(s): O42.90 - Premature rupture of membranes, unspecified as to length of time between rupture and onset of labor, unspecified weeks of gestation Plan 1. She is AmniSure positive with spontaneous rupture of membranes. 2. She has Rh- blood and is group B streptococcus negative. 3. We would expect a vaginal delivery. 4. She is 4 cm dilated 100% Station -3.
[2024-07-22] MEDS: TERBUTALINE SULFATE 1MG/ML VIAL 0.25 MG SUBCUT (23:35)
--- NOTE | 2024-07-23 00:03 | EXP.LABOR.NO ---
Labor Note Subjective: Date: 07/23/24 Time: 00:03 regular contraction Objective: NST:: Reactive Contractions:: every 2-3 minutes Cervical Dilation:: 9-10 Effacement:: 100% Station: 0 Membranes: spontaneously ruptured Fetus: Monitoring?: Yes monitoring type:: Internal Comment:: I inserted an IUPC as well as a scalp clip. Assessment: Labor progressing?: Yes Cephalopelvic disproportion?: No Plan: Anesthesia for epidural?: Yes Continue to labor down?: Yes Plan for ?: No Continue to monitor?: Yes Start pushing?: Yes Additional information:: Babies had seem to come down fairly quickly so we will see if we can start pushing.
[2024-07-23] MEDS: OXYTOCIN/RINGERS LACTATE 30 UNITS/500 ML BAG IV (00:21)
--- NOTE | 2024-07-23 01:59 | EXP.DN ---
Delivery Note Delivery Date:: 07/23/24 Delivery Time:: 01:45 Anesthesia Type: Epidural Was labor medically induced?: No Induction method: none Gestational age (weeks): 39 Infant delivered prior to 39 weeks?: No Justification for early elective delivery:: Active Labor Gender: Female at 1 minute: 8 at 5 minutes: 9 LAC or MLE?: LAC Delivery Procedure:: She is a 19-year-old 1 para 0 at 39 weeks gestational age. She came in with spontaneous rupture of membranes. She progressed under labor epidural to full dilation and delivered spontaneously a liveborn female child at 1:45 AM on the morning of July 23, 2024. I delivered the head the anterior shoulder then easily delivered followed by the rest the infant's body atraumatically. The baby was vigorous. The oropharynx and nasopharynx were bulb suction. We allowed the cord to continue to pulsate for approximately 1 minute. The cord was then doubly clamped and cut and the was placed on the mother's abdomen for further care. The nurses assigned Apgars of 8 at 1 minute and 9 at 5 minutes. We then obtained cord blood. She received IV oxytocin and using gentle traction on the cord and countertraction the fundus the placenta easily delivered intact 4 minutes after delivery. He had a normal three-vessel cord. She had a small second-degree perineal laceration was repaired with 3-0 Vicryl Rapide suture to the superficial tissues and 2-0 Vicryl suture to the deep tissues of the perineum and the perineum. She has O Rh- blood, she is rubella immune and was group B streptococcus negative. She plans to breast-feed. Estimated blood loss was approximately 250 cc. Laceration:: vaginal Placental Delivery Description: Spontaneous
[2024-07-23] MEDS: BENZOCAINE-MENTHOL SPRAY 56GM CAN TP (02:15)
[2024-07-23] MEDS: WITCH HAZEL 40 PADS/BOX 1 EACH TP ×2 (02:15→19:48)
[2024-07-23] MEDS: CALCIUM CARBONATE 500MG CHEWTAB 1000 MG PO (02:20)
[2024-07-23] MEDS: ACETAMINOPHEN 500MG TAB 1000 MG PO ×3 (02:40→22:21)
[2024-07-23] MEDS: IBUPROFEN 400 MG TABLET 800 MG PO ×2 (02:40→16:45)
[2024-07-23 06:16] LABS: Hematocrit 28.9 % (37.0-47.0)
[2024-07-23 07:18] LABS: Hemoglobin 9.6 g/dL (12.2-16.2)
[2024-07-23] MEDS: ONDANSETRON 4MG/2ML VIAL 4 MG IV (08:45)
[2024-07-23 08:47] VITALS: BP 138/72; PULSE 71; RESP 18; TEMP 36.3; O2SAT 97
--- NOTE | 2024-07-23 09:40 | P.CONPHA_ITS ---
Pharmacy Intervention Comments: MEDICATION RECONCILIATION COMPLETED ON PATIENT USING EXTERNAL FILL HISTORY FROM PHARMACY AND LIST FROM [facility] BUSINESS ANALYST OFFICE. -MONAE OCHOAD
--- NOTE | 2024-07-23 09:40 | HMH.PHAINT1 ---
Pharmacy Intervention Comments: MEDICATION RECONCILIATION COMPLETED ON PATIENT USING EXTERNAL FILL HISTORY FROM PHARMACY AND LIST FROM [facility] OPERATOR [facility]DRAUL[facility] OFFICE. -MONAE OCHOAD
[2024-07-23 11:43] LABS: RPR W/RFX Titers Nonreactive (Nonreactive)
[2024-07-23 16:38] VITALS: BP 111/62; PULSE 58; RESP 17; TEMP 36.8; O2SAT 98
[2024-07-23] MEDS: RHO(D) IMMUNE GLOBULIN 1,500 UNIT (300MCG) SYRINGE 300 MCG IM (16:40)
[2024-07-23] MEDS: PRENATAL MULTIVITAMIN W/IRON 1 EACH PO (16:45)
[2024-07-23] MEDS: SENNA 8.6MG TABLET 8.6 MG PO (19:48)
[2024-07-24] MEDS: IBUPROFEN 400 MG TABLET 800 MG PO (04:17)
[2024-07-24 09:14] VITALS: BP 124/75; PULSE 87; RESP 18; TEMP 36.3; O2SAT 97
--- NOTE | 2024-07-24 09:25 | EXP.DC.SUM ---
General Admission date:: 07/22/24 Discharge date: 07/24/24 HPI HPI HPI: PPD # 1 s/p Feeling well. Pain controlled. Formula feeding. Lochia is appropriate. Voiding without difficulty and passing flatus. Tolerating regular diet. Denies fever/chills, chest pain and shortness of breath. No headaches, vision changes, lightheadedness/dizziness. No lower extremity swelling. Ambulating well ad santa. Hospital Course Hospital Course Hospital Course: Ms Pascale Mendoza is a 19 yo at 39 and 1 weeks gestational age who presented to [facility] L[facility]D with complaint of leakage of fluid. Upon exam on labor and delivery she was found to be 3 cm dilated 80% Station -1. AmniSure was positive. Group B streptococcus is negative. She had a normal spontaneous vaginal delivery on 07/23/24 at 0145. She delivered a live female baby, Althea, weighing 7 lb 14 oz. APGARs 8 at 1 minute and 9 at 5 minutes. EBL 250 mL. She did well . Pain controlled. Formula feeding. Light lochia. Voiding without difficulty and passing flatus. Tolerating regular diet. Denies fever/chills, chest pain and shortness of breath. No headaches, dizziness/lightheadedness or vision changes. Vital signs stable, afebrile. Heart regular rate and rhythm. Lungs clear to auscultation. Abdomen soft, nontender. No lower extremity swelling. Ambulating well ad santa. Normal hospital course. She was discharged to home on PPD # 1 with instructions to follow-up in the office in 2 weeks or sooner if needed. Exam Data for Last 24 hours Vital signs and Labs for Last 24 Hours: Temp Pulse Resp BP Pulse Ox O2 Del Method 98.2 F 58 L 17 111/62 98 Room Air 07/23/24 16:38 07/23/24 16:38 07/23/24 16:38 07/23/24 16:38 07/23/24 16:38 07/23/24 16:38 Laboratory Results - last 24 hr 07/22/24 18:05: RPR w/Rflx to Titer Nonreactive, Antibody Identification See Comments I & O for Last 24 hours: Intake & Output 07/21/24 07/22/24 07/23/24 07/24/24 23:59 23:59 23:59 23:59 Weight 190 lb Microbiology Reports for the Last 24 Hours: Microbiology 07/22/24 14:40 Urine,Clean Catch Urine Culture - Final Multiple organisms, suggests contamination. Constitutional Constitutional: no acute distress and cooperative *Routine HEENT Exam Head: Present normocephalic and atraumatic Eye: Absent conjunctivae pink ENT: Present mucous membranes moist *Routine Neck Exam Neck: Present full ROM *Routine Respiratory Exam Respiratory: Present CTA bilaterally and normal respiratory effort *Routine Cardiovascular Exam Cardiovascular: Present RRR *Routine Abdominal Exam Abdominal: Present soft; Absent tenderness Comments: Uterine fundus firm and below umbilicus *Routine Rectal Exam Patient deferred: visual exam *Routine Exam Patient deferred: external exam *Routine Extremities Exam Extremities: Present full ROM; Absent edema or calf tenderness *Routine Neurological Exam Neurological: Present alert, moving all extremities and normal speech Routine Psychiatric Exam Psychiatric: Present normal affect and cooperative Results Data Completed and Pending Labs on day of discharge: Labs from last 24 hours 07/22/24 18:05 RPR w/Rflx to Titer Nonreactive Antibody Identification See Comments DS: Diagnosis Discharge Diagnosis (1) Status post normal vaginal delivery: Status: Acute (2) Rh negative state in antepartum period: Status: Acute Code(s): O26.899 - Other specified related conditions, unspecified trimester; Z67.91 - Unspecified blood type, Rh negative (3) Acute blood loss anemia: Status: Acute Code(s): D62 - Acute posthemorrhagic anemia Meds Home Medications and Allergies Home Medications ?Medication ?Instructions ?Recorded ?Confirmed ?Type vits no.126-ferrous fum 1 tab PO DAILY 12/13/23 07/23/24 History 28 mg iron-folic acid 800 mcg tablet (Classic ) ferrous sulfate 325 mg (65 mg 325 mg PO DAILY 02/12/24 07/23/24 History iron) tablet (FeroSul) magnesium 250 mg tablet 250 mg PO DAILY 03/12/24 07/23/24 History polyethylene glycol 3350 17 17 g PO DAILY 03/12/24 07/23/24 History gram/dose oral powder (Miralax) famotidine 20 mg tablet 20 mg PO BID 06/08/24 07/23/24 History New Prescriptions to Start Prescriptions: Allergies Allergy/AdvReac Type Severity Reaction Status Date / Time No Known Allergies Allergy Verified 07/20/24 11:22 Discharge Plan Disposition Patient Disposition: Home, Self-Care Condition: Good Discharge Order Discharge Orders: Discharge Order (Routine); Ordered 07/24/24 Ordered By: Savannah Head Follow up Plan Follow up with: Savannah Head DO [Staff Physician] - 08/07/24 1:00 pm Prescriptions/Medication Reconciliation: Continued Classic 28 mg iron- 800 mcg tablet 1 tab PO DAILY ferrous sulfate [FeroSul] 325 mg (65 mg iron) tablet 325 mg PO DAILY magnesium 250 mg tablet 250 mg PO DAILY polyethylene glycol 3350 [Miralax] 17 gram/dose powder 17 g PO DAILY famotidine 20 mg tablet 20 mg PO BID Problem Reconciliation Problems Reviewed?: Yes Patient Discharge Instructions ACTIVITY: Limited activity DIET: continue same diet and regular diet Additional Instructions: Congratulations!! Discharge: 1. Take 800 mg Ibuprofen every 8 hours as needed for pain. You can also take 500-1000 mg of Tylenol in between doses, every 6-8 hours. Continue to take ferrous sulfate daily with food and vitamin C to help absorption. 2. Nothing in the vagina for 6 weeks - no intercourse, douching or tampons. No tub baths/hot tubs or swimming pools 3. Reasons to return to L&D or call On-Call doctor - fever (greater than 100.4) - heavy vaginal bleeding (soaking through 1 pad in less than 2 hours) - vaginal discharge (malodorous and/or purulent) - severe headaches not resolved by medication or rest 4. depression/blues - Normal to feel anxious/overwhelmed for first 2 weeks - Talk to your doctor if: severe anxiety, trouble bonding with baby, withdrawing from other family members, thoughts of harming yourself or others Savannah Head DO [facility] [phone] Patient Instructions: Depression, Hemorrhage, DI for Labor and Delivery, Vaginal , DI for Pre-eclampsia, [facility] Post Discharge Instructions Print Language: Bulgarian Providers Primary Care Provider: Joana Ayoub Admit Provider: Eric Ramsey Attending Provider: Eric Ramsey
== END 2024-07-24 12:55 | disposition home or self-care (01) | DRG 806 ==
LOC: OBOUT 17:35 → OB 17:35
PROVIDERS: Obstetrics & Gynecology; Admitting Provider Nurse Practitioner Obstetrics & Gynecology; PCP Family Medicine; Visit Provider Nurse Practitioner Obstetrics & Gynecology
DX: O42.02 Full-term premature rupture of membranes, onset of labor within 24 hours of rupture (principal); D62 Acute posthemorrhagic anemia; Z37.0 Single live birth; O70.1 Second degree perineal laceration during delivery; Z3A.39 39 weeks gestation of pregnancy; O99.02 Anemia complicating childbirth
CPT/HCPCS: 36415; 59025; 81001; 84112; 85014; 85018; 85025; 85461; 86592; 86850; 86870; 87086; 94761; C1758; G0283; J0595; J0690; J2405; J2790; J3010; J3105; J7120

== ENCOUNTER 2024-12-24 11:45 | Outpatient (CLI) | payer MEDICAID, SELFPAY | END 2024-12-24 23:59 | LOC: LAB.DROPOF 12-28 11:46 | PROVIDERS: PCP Family Medicine; Visit Provider Nurse Practitioner | DX: N39.0 Urinary tract infection, site not specified (principal) | CPT/HCPCS: 87086 ==

== ENCOUNTER 2025-02-01 13:36 | Outpatient (CLI) | payer MEDICAID, SELFPAY ==
--- OUTSIDE RECORDS SUMMARY | 2025-02-01 13:52 | XMS_ITS | Clinical Summary ---
Author Organization [facility] Address [address] [place] [address] Care Team Providers Care Stock Preparation Operator Name Role Phone Joana Ayoub MD Primary Care Provider + Allergies No known active allergies Medications Multiple Vitamins-Mineral s (Womens Multi) capsule Take 1 tablet by mouth Daily. 100MG Daily Active ferrous sulfate 325 (65 FE) MG EC tablet Take 1 tablet by mouth Every Other Day. 02/12/2024 Active Magnesium 250 MG tablet Take 1 tablet by mouth As Needed. 03/12/2024 Active Polyethylene Glycol 3350 (MIRALAX PO) As Needed. 03/12/2024 Activ e Vit-Fe Fumarate-FA ( Vitamin) 27-0.8 MG tablet Take 1 tablet by mouth Daily. 12/13/2023 Active promethazine (PHENERGAN) 25 MG tablet 1 tablet As Needed. 01/02/2024 Active clotrimazole (LOTRIMIN) 1 % vaginal cream Insert into the vagina Every Night. Active Active Problems Problem Noted Date Diagnosed Date renal anomaly, single gestation 04/02/2024 Assessment & Plan (05/07/2024 10:47 AM EST): right kidney appears stable or even smaller, as if involuting. The left kidney is normal. There is a normal amount of amniotic fluid. I do not foresee any issues going forward. - Recommend patient have another ultrasound in your office in 4wks to confirm continued good amniotic fluid - Recommend baby be evaluated by mutton puncher after delivery - If you need us to re-evaluate for any reason, we are happy to see patient back Assessment & Plan (04/02/2024 12:05 PM EST): Patient referred by her OB for ultrasound performed in their office that demonstrated concern for a right polycystic kidney. Patient reports no family history of renal disease. And she notes no complications with her so far. Ultrasound today demonstrates a normally grown fetus. Left kidney appears entirely normal right kidney appears to be a multicystic dysplastic kidney displaced somewhat into the pelvis. No other anomalies are noted. No markers for trisomy are noted. Amniotic fluid volume is entirely normal. Umbilical artery Dopplers and cervical length appeared normal. 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 Normal amniotic fluid is seen which is a good prognostic sign. Majority of the time these kidney for follow-up. s are nonfunctional but without functional left kidney the fetus and infant should do well. At the current time no alterations are necessary and normal obstetric care. We will rescan the patient again in 5 weeks time to make sure there is no change in the clinical picture. I would expect at this point that the patient can deliver at her local hospital at term. would need evaluation of system after delivery and most likely referral to pediatric urology. Follow-up appointment is made here in 5 weeks time. 04/02/2024 Family History Medical History Relation Name Comments No Known Problems Brother Hypertension Father No Known Problems Maternal Grandfather No Known Problems Maternal Grandmother No Known Problems Mother Hyperlipidemia Paternal Grandfather No Known Problems Paternal Grandmother No Known Problems Sister Relation Name Status Comments Brother Father Maternal Grandfather Maternal Grandmother Mother Paternal Grandfather Paternal Grandmother Sister Social History Tobacco Use Types Packs/Day Years Used Date Smoking Tobacco: Never Smokeless Tobacco: Never Tobacco Cessation:Counseling Given: Not Answered Alcohol Use Standard Drinks/Week Comments Never 0 (1 standard drink = 0.6 oz pur e alcohol) Abuse Screen Answer Date Recorded Feels Unsafe at Home or Work/School no 02/02/2022 Feels Threatened by Someone no 01/10 Does Anyone Try to Keep You From Having Contact with Others or Doing Things Outside Your Home? no 02/02/2022 Physical Signs of Abuse Present no 02/02/2022 Comments No Sex and Gender Information Value Date Recorded Sex Assigned at Not on file Legal Sex Female 2:51 PM EST Gender Identity Not on file Sexual Orientation Not on file Last Filed Vital Signs Vital Sign Reading Time Taken Comments Blood Pressure 120/66 05/07/2024 9:55 AM EST Pulse 92 02/06/2022 2:10 PM EST Temperature 35.7 C (96.3 F) 02/06/2022 2:06 PM EST Respiratory Rate 16 02/06/2022 2:06 PM EST Oxygen Saturation 98% 02/06/2022 2:06 PM EST Inhaled Oxygen Concentration - - Weight 82.1 kg (181 lb) 05/07/2024 9:55 AM EST Height 163.8 cm (5' 4.5 ) 04/02/2024 11:32 AM ES T Body Mass Index 30.59 04/02/2024 11:32 AM EST Plan of Treatment Health Maintenance Due Date Last Done Comments Annual Gynecologic Pelvic and Breast Exam 2003 MENINGOCOCCAL B VACCINE (1 of 2 - Standard) 2019 ANNUAL PHYSICAL 02/06/2022 CHLAMYDIA SCREENING 02/06/2022 HEPATITIS C SCREENING 02/06/2022 TDAP/TD VACCINES (1 - Tdap) 2022 PAP SMEAR 2024 INFLUENZA VACCINE 10/09/2024 02/23/2021, , 12/15/2018, Additional history exists Pneumococcal Vaccine 0-49 Aged Out 2003 No longer eligible based on patient's age to complete this topic HPV VACCINES Completed 01/23/2018, 07/18/2017 MENINGOCOCCAL VACCINE Completed 02/19/[id number]PO Care Teams Stock Preparation Operator Relationship Specialty Start Date End Date Joana Ayoub MD [address] [place] [id number] PCP - General Family Medicine 02/02/22
[2025-02-01 15:00] LABS: Hemoglobin A1C 5.1 % (4.0-6.0)
== END 2025-02-01 23:59 | disposition home or self-care (01) ==
LOC: LAB 13:36
PROVIDERS: PCP Family Medicine; Visit Provider Obstetrics & Gynecology
DX: E11.9 Type 2 diabetes mellitus without complications (principal)
CPT/HCPCS: 36415; 83036